=== PATIENT | female | born 1965 | race African-American/Black ===

== ENCOUNTER 2016-03-27 20:40 | Emergency (ER) | payer MEDICARE, MEDICAID ==
[2006-02-04 11:28] VITALS: BP 143/74
[~2016-03-27] VITALS: Ht 167.6 cm; Wt 59.1 kg
[~2016-03-27 20:40] MED LIST: ABILIFY 10MG TA10 MG PO; ACETAMINOPHEN W1 TA6 PO; AMBIEN 5MG TABLE5 MG PO; AMOXICILLIN 50500 MG PO; AMOXICILLIN875 MG PO; ASPIRIN 81M81 MG/TA2 PO; ATARAX 10MG10 MG/TAB PO; ATARAX25 MG PO; ATIVAN2 MG PO; BACTRIM 400 MG-1 TAB PO; BACTRIM DS 8001 TAB PO; BUSPAR10 MG PO; CARAFATE S1 GM/10 ML PO; CEFTIN500 MG PO; CELEXA10 MG PO; CEPHALEXIN500 M1 PO; CITALOPRAM HYDR20 MG PO; CITALOPRAM20 MG PO; CODEINE30 MG PO; COPEGUS200 MG PO; DEPAKOTE 250MG250 MG; DEPAKOTE ER 25250 MG PO; DEPAKOTE ER 50500 MG PO; DEPAKOTE500 MG PO; DIFLUCAN100 MG PO; DIFLUCAN200 MG PO; DILAUDID 2MG TAB2 MG PO; DOXYCYCLINE 10100 MG PO; FLAGYL500 MG PO; FLEXERIL 1010 MG/TAB PO; FLEXERIL10 MG PO; KEFLEX500 MG PO; KENALOG0.0251 TP; KEPPRA XR750 MG PO; LANTUS100 U/ML; LASIX 20MG TABL20 MG PO; LEVEMIR; LEVEMIR SQ; LEVEMIR100 U/ML SQ; LEVETIRACETAM500 MG PO; LEVIMIR; LISINOPRIL; LISINOPRIL10 MG PO; LOPRESSOR 225 MG/TAB PO; LORTAB 5/500 501 TAB PO; LYRICA 150MG C150 MG PO; MAGIC MOUTHWASH1 ML PO; METRONIDAZOLE500 MG PO; NEURONTIN300 MG/CAP PO; NORCO 325 MG-101 TAB PO; NORCO 325 MG-51 TAB PO; NORCO 325 MG-7.1 TAB PO; NOVLOG SQ; NOVOLIN L100 U/ML SC; NOVOLOG 100U100 U/M1 SQ; OMNICEF 300MG300 MG PO; PAIN CREAM; PEGASYS180 MCG/0. MR; PEN-VEE K500 MG PO; PERCOCET 325 MG1 TA2 PO; PERCOCET 325 MG1 TA3 PO; PERCR 7.5 PO; PHENERGAN 25 TA25 MG PO; PHENERGAN W/CO120 ML PO; PHENERGAN25 MG RC; PLAVIX 75MG TAB75 MG PO; PRILOSEC40 MG PO; PRINIVIL2.5 MG PO; PRINIVIL20 MG PO; PRINIVIL40 MG PO; PRISTIQ50 MG; PROTONIX 40MG T40 MG PO; PROZAC 10MG10 MG PO; PROZAC 20MG20 MG PO; RANITIDINE HYD150 MG PO; RISPERDAL 0.5M0.5 MG; RISPERDAL2 MG PO; RISPERDAL3 MG PO; ROXICODONE 55 MG/TAB PO; SEPTRA DS 8001 TAB PO; SEROQUEL200 MG PO; SMZ/TMP; TAMIFLU 75MG75 MG PO; TRAMADOL50 MG PO; TRAZODONE HCL100 MG PO; ULTRAM 50MG TAB50 MG PO; ULTRAM50 MG PO; VENTOLIN0.09 MG IH; VICODIN 5/5001 UDTAB PO; VICTRELIS200 MG PO; ZESTRIL 20MG TA20 MG PO; ZESTRIL40 MG PO; ZITHROMAX 250M250 MG PO; ZOCOR 10MG10 MG PO; ZOFRAN ODT8 MG PO; novolog
[2016-03-27 20:44] VITALS: TEMP 98
[2016-03-27 21:40] LABS: BASO % 0.3 % (0.0-2.0); EOS % 0.4 % (0-4.0); GRAN # 3.2 (1.4-6.5); GRAN % 42.1 % (42.2-75.2); HEMATOCRIT 37.8 % (37.0-47.0); HEMOGLOBIN 12.9 g/dl (12.5-16.0); LYMPH # 3.7 (1.2-3.4); MEAN CELL VOLUME 89 fl (80.0-100.0); MEAN CORPUSCULAR HEMOGLOBIN 31 pg (27.0-31.0); MEAN CORPUSCULAR HGB CONC 34 g/dl (33.0-37.0); MONO # 0.7 (0.1-0.6); MONO % 9.1 % (1.7-9.3); PLATELET COUNT 304 K/mm3 (130-400); RED BLOOD COUNT 4.23 M/mm3 (4.10-5.30); REDCELL DISTRIBUTION WIDTH-CV 13.2 % (11.5-14.5); WHITE BLOOD COUNT 7.7 K/mm3 (4.8-10.8)
[2016-03-27 21:50] LABS: ADJUSTED CALCIUM 9.3 mg/dL (8.4-10.2); ALANINE AMINOTRANSFERASE 62 U/L (9-52); ALBUMIN 4.1 gm/dL (3.5-5.0); ALKALINE PHOSPHATASE 61 U/L (50-136); ANION GAP 12 mmol/L (7-16); BILIRUBIN,TOTAL 0.6 mg/dL (0.0-1.0); BLOOD UREA NITROGEN 15 mg/dL (7-17); CALCIUM 9.4 mg/dL (8.4-10.2); CARBON DIOXIDE 26 mmol/L (22-30); CHLORIDE 101 mmol/L (98-107); CREATININE, serum 0.81 mg/dL (0.52-1.25); GLUCOSE 81 mg/dL (74-106); POTASSIUM 3.6 mmol/L (3.4-5.0); SODIUM 139 mmol/L (137-145); TOTAL PROTEIN 8.3 gm/dL (6.4-8.2)
[2016-03-27 22:20] LABS: ERYTHROCYTE SEDIMENTATION RATE 34 mm/hr (0-30)
[2016-03-27 22:52] LABS: AMPHETAMINE URINE POSITIVE; BARBITURATES URINE NEGATIVE; BENZODIAZEPINES URINE NEGATIVE; BUPRENORPHINE URINE NEGATIVE; METHADONE URINE NEGATIVE; OPIATES URINE NEGATIVE; OXYCODONE URINE POSITIVE; PHENCYCLIDINE URINE NEGATIVE; PROPOXYPHENE URINE NEGATIVE; THC CANNABINOIDS URINE NEGATIVE
[2016-03-27 23:03] VITALS: BP 110/74; PULSE 96
== END 2016-03-27 23:04 | disposition home or self-care (01) ==
LOC: COL.ER 20:40
PROVIDERS: Emergency Medicine
DX: R51 Headache (principal); H57.13 Ocular pain, bilateral; E11.319 Type 2 diabetes mellitus with unspecified diabetic retinopathy without macular edema; F15.10 Other stimulant abuse, uncomplicated; Z79.4 Long term (current) use of insulin

== ENCOUNTER 2016-04-15 23:53 | Emergency (ER) | payer MEDICARE, MEDICAID ==
[2006-02-04 11:28] VITALS: BP 143/74
[~2016-04-15] VITALS: Ht 167.6 cm; Wt 56.8 kg
[2016-04-15 23:59] VITALS: TEMP 97.8
[2016-04-16 00:46] LABS: AMPHETAMINE URINE NEGATIVE; BARBITURATES URINE NEGATIVE; BENZODIAZEPINES URINE NEGATIVE; BUPRENORPHINE URINE NEGATIVE; METHADONE URINE NEGATIVE; OPIATES URINE POSITIVE; OXYCODONE URINE NEGATIVE; PHENCYCLIDINE URINE NEGATIVE; PROPOXYPHENE URINE NEGATIVE; THC CANNABINOIDS URINE NEGATIVE
[2016-04-16 00:59] LABS: BASO % 0.3 % (0.0-2.0); EOS # 0.1 (0.0-0.7); LYMPH # 2.5 (1.2-3.4); LYMPH % 40.3 % (20.0-51.0); MEAN CELL VOLUME 88 fl (80.0-100.0); MEAN CORPUSCULAR HGB CONC 35 g/dl (33.0-37.0); MEAN PLATELET VOLUME 10.4 fl (7.4-10.4); MONO # 0.6 (0.1-0.6); MONO % 9.2 % (1.7-9.3); PLATELET COUNT 241 K/mm3 (130-400); RED BLOOD COUNT 3.78 M/mm3 (4.10-5.30); REDCELL DISTRIBUTION WIDTH-CV 13.1 % (11.5-14.5); WHITE BLOOD COUNT 6.1 K/mm3 (4.8-10.8)
[2016-04-16 01:02] LABS: HEMATOCRIT 33.4 % (37.0-47.0); HEMOGLOBIN 11.7 g/dl (12.5-16.0); MEAN CORPUSCULAR HEMOGLOBIN 31 pg (27.0-31.0)
[2016-04-16 01:13] LABS: ADJUSTED CALCIUM 8.8 mg/dL (8.4-10.2); ALANINE AMINOTRANSFERASE 69 U/L (9-52); ALBUMIN 3.8 gm/dL (3.5-5.0); ALKALINE PHOSPHATASE 69 U/L (50-136); ANION GAP 11 mmol/L (7-16); BILIRUBIN,TOTAL 0.5 mg/dL (0.0-1.0); BLOOD UREA NITROGEN 10 mg/dL (7-17); CALCIUM 8.6 mg/dL (8.4-10.2); CARBON DIOXIDE 26 mmol/L (22-30); CHLORIDE 93 mmol/L (98-107); CREATININE, serum 0.81 mg/dL (0.52-1.25); POTASSIUM 3.2 mmol/L (3.4-5.0); SODIUM 130 mmol/L (137-145); TOTAL PROTEIN 7.6 gm/dL (6.4-8.2)
[2016-04-16 01:17] LABS: ACETAMINOPHEN < 10 ug/mL (10-30); GLUCOSE 517 mg/dL (74-106); SALICYLATE < 1.0 mg/dL
[2016-04-16 14:15] VITALS: BP 152/89; PULSE 101
== END 2016-04-16 14:30 ==
LOC: COL.ER 23:53
PROVIDERS: Nurse Practitioner
DX: F32.9 Major depressive disorder, single episode, unspecified (principal); R45.851 Suicidal ideations; E11.9 Type 2 diabetes mellitus without complications; Z79.4 Long term (current) use of insulin; I10 Essential (primary) hypertension; F43.10 Post-traumatic stress disorder, unspecified; F17.210 Nicotine dependence, cigarettes, uncomplicated; R07.9 Chest pain, unspecified
CPT/HCPCS: J1815; J7030

== ENCOUNTER 2016-05-03 21:46 | Emergency (ER) | payer MEDICARE, MEDICAID ==
[2006-02-04 11:28] VITALS: BP 143/74
[~2016-05-03] VITALS: Ht 167.6 cm; Wt 60.5 kg
[2016-05-03 22:46] VITALS: TEMP 100.8
[2016-05-03 23:08] LABS: BASO % 0.4 % (0.0-2.0); EOS % 0.1 % (0-4.0); GRAN # 7.9 (1.4-6.5); GRAN % 71.6 % (42.2-75.2); HEMATOCRIT 37.3 % (37.0-47.0); HEMOGLOBIN 13.4 g/dl (12.5-16.0); LYMPH # 2.2 (1.2-3.4); LYMPH % 19.6 % (20.0-51.0); MEAN CELL VOLUME 86 fl (80.0-100.0); MEAN CORPUSCULAR HEMOGLOBIN 31 pg (27.0-31.0); MEAN CORPUSCULAR HGB CONC 36 g/dl (33.0-37.0); MONO # 0.9 (0.1-0.6); MONO % 7.9 % (1.7-9.3); PLATELET COUNT 270 K/mm3 (130-400); RED BLOOD COUNT 4.34 M/mm3 (4.10-5.30); REDCELL DISTRIBUTION WIDTH-CV 11.9 % (11.5-14.5); WHITE BLOOD COUNT 11.1 K/mm3 (4.8-10.8)
[2016-05-03 23:19] LABS: ADJUSTED CALCIUM 9.8 mg/dL (8.4-10.2); ALANINE AMINOTRANSFERASE 31 U/L (9-52); ALBUMIN 4.1 gm/dL (3.5-5.0); ALKALINE PHOSPHATASE 72 U/L (50-136); ANION GAP 14 mmol/L (7-16); BILIRUBIN,TOTAL 0.8 mg/dL (0.0-1.0); BLOOD UREA NITROGEN 15 mg/dL (7-17); CALCIUM 9.9 mg/dL (8.4-10.2); CARBON DIOXIDE 26 mmol/L (22-30); CHLORIDE 90 mmol/L (98-107); CREATININE, serum 0.69 mg/dL (0.52-1.25); LIPASE 78 U/L (23-300); POTASSIUM 4.3 mmol/L (3.4-5.0); SODIUM 129 mmol/L (137-145); TOTAL PROTEIN 8.6 gm/dL (6.4-8.2)
[2016-05-03 23:27] LABS: B-TYPE NATRIURETIC PEPTIDE 633 pg/mL (0-125); INFLUENZA B NEGATIVE
[2016-05-03 23:30] LABS: GLUCOSE 562 mg/dL (74-106)
[2016-05-03] MEDS ORDERED: ULTRAM 50MG TAB50 MG PO (23:30)
[2016-05-03 23:33] LABS: TROPONIN-I < 0.012 ng/mL (0.000-0.034)
[2016-05-04 00:42] VITALS: BP 135/75; PULSE 90
== END 2016-05-04 00:45 | disposition home or self-care (01) ==
LOC: COL.ER 21:46
PROVIDERS: Emergency Medicine
DX: R07.9 Chest pain, unspecified (principal); J06.9 Acute upper respiratory infection, unspecified; R00.0 Tachycardia, unspecified; E11.319 Type 2 diabetes mellitus with unspecified diabetic retinopathy without macular edema; Z79.4 Long term (current) use of insulin; F17.210 Nicotine dependence, cigarettes, uncomplicated
CPT/HCPCS: J1170; J7030

== ENCOUNTER 2016-05-07 20:30 | Inpatient (IN) | payer MEDICARE, MEDICAID ==
[~2016-05-07] VITALS: Ht 167.6 cm; Wt 60.0 kg
[2016-05-07] VITALS (9 sets, daily range): O2SAT 96–100
[2016-05-07 20:58] LABS: VENOUS BLOOD GAS BE -0.5 (-4-4)
[2016-05-07 20:59] LABS: VENOUS BLOOD GAS SITE VENIPUNCTURE
[2016-05-07 21:17] LABS: BASO % 0.3 % (0.0-2.0); EOS % 0.3 % (0-4.0); GRAN # 4.7 (1.4-6.5); GRAN % 61.7 % (42.2-75.2); HEMOGLOBIN 12.1 g/dl (12.5-16.0); LYMPH # 2.3 (1.2-3.4); LYMPH % 30.3 % (20.0-51.0); MEAN CELL VOLUME 87 fl (80.0-100.0); MEAN CORPUSCULAR HEMOGLOBIN 31 pg (27.0-31.0); MEAN CORPUSCULAR HGB CONC 36 g/dl (33.0-37.0); MONO # 0.5 (0.1-0.6); MONO % 7.1 % (1.7-9.3); PLATELET COUNT 265 K/mm3 (130-400); RED BLOOD COUNT 3.92 M/mm3 (4.10-5.30); REDCELL DISTRIBUTION WIDTH-CV 11.8 % (11.5-14.5); WHITE BLOOD COUNT 7.6 K/mm3 (4.8-10.8)
[2016-05-07 21:19] LABS: HEMATOCRIT 34.1 % (37.0-47.0)
[2016-05-07 21:25] LABS: PROTHROMBIN TIME 11.1 SECONDS (9.7-12.8)
[2016-05-07 21:27] LABS: INFLUENZA B NEGATIVE
[2016-05-07 21:32] LABS: ADJUSTED CALCIUM 9.6 mg/dL (8.4-10.2); ALANINE AMINOTRANSFERASE 24 U/L (9-52); ALBUMIN 3.7 gm/dL (3.5-5.0); ALKALINE PHOSPHATASE 81 U/L (50-136); ANION GAP 16 mmol/L (7-16); BILIRUBIN,TOTAL 0.6 mg/dL (0.0-1.0); BLOOD UREA NITROGEN 23 mg/dL (7-17); CALCIUM 9.4 mg/dL (8.4-10.2); CARBON DIOXIDE 21 mmol/L (22-30); CREATININE, serum 0.77 mg/dL (0.52-1.25); SODIUM 127 mmol/L (137-145); TOTAL PROTEIN 7.9 gm/dL (6.4-8.2)
[2016-05-07 21:38] LABS: PH 6 (5-8); SQUAMOUS EPITHELIAL 0-2 /hpf; URINE APPEARANCE Clear; URINE BACTERIA None Seen /hpf; URINE BILIRUBIN Negative (NEGATIVE); URINE BLOOD Negative (NEGATIVE); URINE COLOR Straw; URINE GLUCOSE 3+ (NEGATIVE); URINE KETONE Negative (NEGATIVE); URINE RBC 0-2 /hpf; URINE UROBILINOGEN Negative (NEGATIVE); URINE WBC 0-2 /hpf
[2016-05-07 21:41] LABS: LACTIC ACID 3.6 mmol/L (0.4-2.0)
[2016-05-07 21:42] LABS: ACETAMINOPHEN < 10 ug/mL (10-30); B-TYPE NATRIURETIC PEPTIDE 935 pg/mL (0-125); GLUCOSE 723 mg/dL (74-106); SALICYLATE < 1.0 mg/dL
[2016-05-07 21:43] LABS: CHLORIDE 89 mmol/L (98-107); TROPONIN-I < 0.012 ng/mL (0.000-0.034)
[2016-05-07 21:43] LABS: AMPHETAMINE URINE NEGATIVE; BARBITURATES URINE NEGATIVE; BENZODIAZEPINES URINE NEGATIVE; BUPRENORPHINE URINE NEGATIVE; METHADONE URINE NEGATIVE; OPIATES URINE NEGATIVE; OXYCODONE URINE NEGATIVE; PHENCYCLIDINE URINE NEGATIVE; PROPOXYPHENE URINE NEGATIVE; THC CANNABINOIDS URINE NEGATIVE
[2016-05-07] MEDS ORDERED: NOVOLOG 100U100 U/M1 SQ (22:55)
[2016-05-07] MEDS ORDERED: LEVEMIR100 U/ML SQ (22:56)
[2016-05-07] MEDS ORDERED: PERIACTIN 4MG TA4 MG PO (22:57)
[2016-05-07] MEDS ORDERED: CYMBALTA 60MG60 MG PO (22:58)
[2016-05-07] MEDS ORDERED: ULTRAM 50MG TAB50 MG PO (22:58)
[2016-05-07] MEDS ORDERED: INDERAL 20MG20 MG PO (22:59)
[2016-05-07 23:49] LABS: CALCIUM 9.5 mg/dL (8.4-10.2); CREATININE, serum 0.69 mg/dL (0.52-1.25); POTASSIUM 4.2 mmol/L (3.4-5.0)
[2016-05-08] VITALS (843 sets, daily range): BP systolic 107–142; BP diastolic 70–97; PULSE 77–93; TEMP 97–99.5; O2SAT 75–100
[2016-05-08 00:50] LABS: HEMOGLOBIN A1C 13.4 %
[2016-05-08 07:21] LABS: MEAN CELL VOLUME 88 fl (80.0-100.0); MEAN CORPUSCULAR HGB CONC 35 g/dl (33.0-37.0); MEAN PLATELET VOLUME 10.6 fl (7.4-10.4); PLATELET COUNT 237 K/mm3 (130-400); RED BLOOD COUNT 3.91 M/mm3 (4.10-5.30); WHITE BLOOD COUNT 11.6 K/mm3 (4.8-10.8)
[2016-05-08 07:30] LABS: ADD PATHOLOGY DIFF REVIEW NO; HEMATOCRIT 34.4 % (37.0-47.0); MEAN CORPUSCULAR HEMOGLOBIN 31 pg (27.0-31.0)
[2016-05-08 07:34] LABS: CALCIUM 9.2 mg/dL (8.4-10.2); CREATININE, serum 0.63 mg/dL (0.52-1.25); POTASSIUM 4.1 mmol/L (3.4-5.0)
[2016-05-08 08:46] LABS: BAND 36 % (0-10); BASOPHIL 1 % (0-2); METAMYELOCYTE 2 % (0-0); NEUTROPHILS 46 % (42.0-75.2); PLATELET ESTIMATE NORMAL (NORMAL); TOTAL CELLS COUNTED 100
[2016-05-09] VITALS (392 sets, daily range): BP systolic 163–178; BP diastolic 90–100; PULSE 79–87; TEMP 96.1–98.7; O2SAT 81–100
[2016-05-09 06:19] LABS: BASO % 0.3 % (0.0-2.0); EOS # 0.1 (0.0-0.7); GRAN # 4.3 (1.4-6.5); GRAN % 64.1 % (42.2-75.2); LYMPH # 1.8 (1.2-3.4); LYMPH % 26.6 % (20.0-51.0); MEAN CELL VOLUME 90 fl (80.0-100.0); MEAN CORPUSCULAR HGB CONC 34 g/dl (33.0-37.0); MEAN PLATELET VOLUME 10.6 fl (7.4-10.4); MONO # 0.5 (0.1-0.6); MONO % 7.7 % (1.7-9.3); PLATELET COUNT 203 K/mm3 (130-400); RED BLOOD COUNT 3.29 M/mm3 (4.10-5.30); REDCELL DISTRIBUTION WIDTH-CV 12.6 % (11.5-14.5); WHITE BLOOD COUNT 6.7 K/mm3 (4.8-10.8)
[2016-05-09 06:26] LABS: HEMATOCRIT 29.5 % (37.0-47.0); MEAN CORPUSCULAR HEMOGLOBIN 30 pg (27.0-31.0)
[2016-05-09 06:51] LABS: CALCIUM 8.5 mg/dL (8.4-10.2); CREATININE, serum 0.51 mg/dL (0.52-1.25); POTASSIUM 4.1 mmol/L (3.4-5.0)
[2016-05-09] MEDS ORDERED: PRINIVIL5 MG PO (16:12)
== END 2016-05-09 16:30 | disposition home or self-care (01) | DRG 637 ==
LOC: COL.ER 20:30 → ICU 22:39
PROVIDERS: Emergency Medicine; Family Medicine; Nurse Practitioner Family
PROC: 02HV33Z Insertion of Infusion Device into Superior Vena Cava, Percutaneous Approach (ICD-10-PCS; principal; 2016-05-08)
DX: E11.00 Type 2 diabetes mellitus with hyperosmolarity without nonketotic hyperglycemic-hyperosmolar coma (NKHHC) (principal); E43 Unspecified severe protein-calorie malnutrition; I50.22 Chronic systolic (congestive) heart failure; E87.0 Hyperosmolality and hypernatremia; R65.10 Systemic inflammatory response syndrome (SIRS) of non-infectious origin without acute organ dysfunction; E87.1 Hypo-osmolality and hyponatremia; Z68.1 Body mass index [BMI] 19.9 or less, adult; E11.65 Type 2 diabetes mellitus with hyperglycemia; I11.0 Hypertensive heart disease with heart failure; F15.10 Other stimulant abuse, uncomplicated; F14.10 Cocaine abuse, uncomplicated; F31.9 Bipolar disorder, unspecified; Z85.3 Personal history of malignant neoplasm of breast; Z79.4 Long term (current) use of insulin; F17.210 Nicotine dependence, cigarettes, uncomplicated; E86.0 Dehydration
CPT/HCPCS: 99223-AI; 99239; C1751; J0360; J0696; J1170; J1644; J1815; J2405; J7030; J7040

== ENCOUNTER 2016-06-03 04:10 | Inpatient (IN) | payer MEDICARE, MEDICAID ==
[~2016-06-03] VITALS: Ht 167.6 cm; Wt 55.5 kg
[2016-06-03] VITALS (772 sets, daily range): BP systolic 81–105; BP diastolic 51–63; PULSE 80–99; TEMP 97–98.4; O2SAT 84–100
[~2016-06-03 04:10] MED LIST changes: +CYMBALTA 60MG60 MG PO; +INDERAL 20MG20 MG PO; +PERIACTIN 4MG TA4 MG PO; +PRINIVIL5 MG PO
[2016-06-03 05:03] LABS: HEMOGLOBIN 12.7 g/dl (12.5-16.0); MEAN CELL VOLUME 86 fl (80.0-100.0); MEAN CORPUSCULAR HEMOGLOBIN 31 pg (27.0-31.0); MEAN CORPUSCULAR HGB CONC 36 g/dl (33.0-37.0); MEAN PLATELET VOLUME 11.1 fl (7.4-10.4); PLATELET COUNT 242 K/mm3 (130-400); REDCELL DISTRIBUTION WIDTH-CV 11.7 % (11.5-14.5); WHITE BLOOD COUNT 8.7 K/mm3 (4.8-10.8)
[2016-06-03 05:11] LABS: ADD PATHOLOGY DIFF REVIEW NO; HEMATOCRIT 35.2 % (37.0-47.0)
[2016-06-03 05:13] LABS: ADJUSTED CALCIUM 9.5 mg/dL (8.4-10.2); ALANINE AMINOTRANSFERASE 27 U/L (9-52); ALBUMIN 4.1 gm/dL (3.5-5.0); ALKALINE PHOSPHATASE 80 U/L (50-136); ANION GAP 19 mmol/L (7-16); BILIRUBIN,TOTAL 1.1 mg/dL (0.0-1.0); BLOOD UREA NITROGEN 32 mg/dL (7-17); CALCIUM 9.6 mg/dL (8.4-10.2); CARBON DIOXIDE 18 mmol/L (22-30); CREATININE, serum 1.62 mg/dL (0.52-1.25); LIPASE 124 U/L (23-300); POTASSIUM 4.2 mmol/L (3.4-5.0); SODIUM 123 mmol/L (137-145); TOTAL PROTEIN 8.4 gm/dL (6.4-8.2)
[2016-06-03 05:15] LABS: BAND 57 % (0-10); EOSINOPHIL 1 % (0-4); NEUTROPHILS 22 % (42.0-75.2); TOTAL CELLS COUNTED 100
[2016-06-03 05:16] LABS: PLATELET ESTIMATE NORMAL (NORMAL)
[2016-06-03 05:21] LABS: GLUCOSE 703 mg/dL (74-106)
[2016-06-03 05:22] LABS: CHLORIDE 86 mmol/L (98-107)
[2016-06-03 09:24] LABS: PH 5 (5-8); SQUAMOUS EPITHELIAL 0-2 /hpf; URINE APPEARANCE Cloudy; URINE BACTERIA Rare /hpf; URINE BILIRUBIN Negative (NEGATIVE); URINE BLOOD 1+ (NEGATIVE); URINE COLOR Yellow; URINE GLUCOSE 3+ (NEGATIVE); URINE KETONE Negative (NEGATIVE); URINE RBC 0-2 /hpf; URINE UROBILINOGEN Negative (NEGATIVE); URINE WBC 0-2 /hpf
[2016-06-03 09:31] LABS: CALCIUM 8.9 mg/dL (8.4-10.2); CREATININE, serum 1.42 mg/dL (0.52-1.25); POTASSIUM 3.4 mmol/L (3.4-5.0)
[2016-06-03 09:47] LABS: AMPHETAMINE URINE POSITIVE; BARBITURATES URINE NEGATIVE; BENZODIAZEPINES URINE POSITIVE; BUPRENORPHINE URINE NEGATIVE; METHADONE URINE NEGATIVE; OPIATES URINE POSITIVE; OXYCODONE URINE NEGATIVE; PHENCYCLIDINE URINE NEGATIVE; PROPOXYPHENE URINE NEGATIVE; THC CANNABINOIDS URINE NEGATIVE
[2016-06-03 13:29] LABS: CALCIUM 7.9 mg/dL (8.4-10.2); CREATININE, serum 1.25 mg/dL (0.52-1.25); POTASSIUM 4.8 mmol/L (3.4-5.0)
[2016-06-03 17:25] LABS: CALCIUM 7.5 mg/dL (8.4-10.2); CREATININE, serum 1.07 mg/dL (0.52-1.25); POTASSIUM 4.8 mmol/L (3.4-5.0)
[2016-06-03 21:26] LABS: CALCIUM 7.5 mg/dL (8.4-10.2); CREATININE, serum 1.01 mg/dL (0.52-1.25); POTASSIUM 5.5 mmol/L (3.4-5.0)
[2016-06-04] VITALS (538 sets, daily range): BP systolic 102–135; BP diastolic 71–87; PULSE 90–111; TEMP 97.2–98.5; O2SAT 93–100
[2016-06-04 01:15] LABS: CALCIUM 7.7 mg/dL (8.4-10.2); CREATININE, serum 0.97 mg/dL (0.52-1.25); POTASSIUM 4.4 mmol/L (3.4-5.0)
[2016-06-04 05:08] LABS: VENOUS BLOOD GAS BE -5.4 (-4-4); VENOUS BLOOD GAS SAO2 51.2 % (60-80)
[2016-06-04 05:55] LABS: CALCIUM 7.7 mg/dL (8.4-10.2); CREATININE, serum 0.87 mg/dL (0.52-1.25); POTASSIUM 4.3 mmol/L (3.4-5.0)
[2016-06-04 09:49] LABS: CALCIUM 8.3 mg/dL (8.4-10.2); CREATININE, serum 0.88 mg/dL (0.52-1.25); POTASSIUM 3.7 mmol/L (3.4-5.0)
[2016-06-04 13:40] LABS: CALCIUM 8.1 mg/dL (8.4-10.2); CREATININE, serum 0.86 mg/dL (0.52-1.25); POTASSIUM 3.9 mmol/L (3.4-5.0)
[2016-06-04 17:36] LABS: CALCIUM 8.2 mg/dL (8.4-10.2); CREATININE, serum 0.88 mg/dL (0.52-1.25); POTASSIUM 4.2 mmol/L (3.4-5.0)
[2016-06-04 21:54] LABS: CALCIUM 8.3 mg/dL (8.4-10.2); CREATININE, serum 0.84 mg/dL (0.52-1.25); POTASSIUM 4.1 mmol/L (3.4-5.0)
[2016-06-05] VITALS (800 sets, daily range): BP systolic 112–151; BP diastolic 81–102; PULSE 89–97; TEMP 98.1–98.6; O2SAT 92–99
[2016-06-05 06:00] LABS: BASO % 0.1 % (0.0-2.0); EOS # 0.2 (0.0-0.7); EOS % 1.9 % (0-4.0); GRAN # 4.7 (1.4-6.5); GRAN % 56.1 % (42.2-75.2); LYMPH # 2.7 (1.2-3.4); LYMPH % 31.8 % (20.0-51.0); MEAN CELL VOLUME 90 fl (80.0-100.0); MEAN CORPUSCULAR HGB CONC 34 g/dl (33.0-37.0); MONO # 0.8 (0.1-0.6); MONO % 9.9 % (1.7-9.3); PLATELET COUNT 210 K/mm3 (130-400); RED BLOOD COUNT 2.99 M/mm3 (4.10-5.30); REDCELL DISTRIBUTION WIDTH-CV 12.9 % (11.5-14.5); WHITE BLOOD COUNT 8.5 K/mm3 (4.8-10.8)
[2016-06-05 06:16] LABS: HEMATOCRIT 26.8 % (37.0-47.0); MEAN CORPUSCULAR HEMOGLOBIN 31 pg (27.0-31.0)
[2016-06-05 06:17] LABS: HEMOGLOBIN 9.2 g/dl (12.5-16.0)
[2016-06-05 06:23] LABS: CALCIUM 8.4 mg/dL (8.4-10.2); CREATININE, serum 0.8 mg/dL (0.52-1.25); POTASSIUM 3.7 mmol/L (3.4-5.0)
[2016-06-05 10:47] LABS: CALCIUM 8.2 mg/dL (8.4-10.2); CREATININE, serum 0.79 mg/dL (0.52-1.25); POTASSIUM 3.5 mmol/L (3.4-5.0)
[2016-06-05 13:31] LABS: CALCIUM 8.3 mg/dL (8.4-10.2); CREATININE, serum 0.76 mg/dL (0.52-1.25); POTASSIUM 3.5 mmol/L (3.4-5.0)
[2016-06-05 17:20] LABS: CALCIUM 8.3 mg/dL (8.4-10.2); CREATININE, serum 0.77 mg/dL (0.52-1.25); POTASSIUM 3.3 mmol/L (3.4-5.0)
[2016-06-05 23:50] LABS: CALCIUM 8.3 mg/dL (8.4-10.2); CREATININE, serum 0.72 mg/dL (0.52-1.25); POTASSIUM 3.4 mmol/L (3.4-5.0)
[2016-06-06] VITALS (8 sets, daily range): BP systolic 127–153; BP diastolic 81–113; PULSE 85–94; TEMP 97.1–98.7; O2SAT 97
[2016-06-06 06:24] LABS: CALCIUM 8.7 mg/dL (8.4-10.2); CREATININE, serum 0.72 mg/dL (0.52-1.25); POTASSIUM 4.2 mmol/L (3.4-5.0)
[2016-06-06 09:14] LABS: VENOUS BLOOD GAS SITE CENTRAL LINE
[2016-06-06 12:38] LABS: CALCIUM 8.6 mg/dL (8.4-10.2); CREATININE, serum 0.71 mg/dL (0.52-1.25)
[2016-06-06 12:39] LABS: POTASSIUM 3.6 mmol/L (3.4-5.0)
== END 2016-06-06 18:05 | disposition home or self-care (01) | DRG 638 ==
LOC: COL.ER 04:10 → ICU 05:37 → IMCU 06-04 18:45
PROVIDERS: Emergency Medicine; Internal Medicine
DX: E13.10 Other specified diabetes mellitus with ketoacidosis without coma (principal); I50.22 Chronic systolic (congestive) heart failure; N17.9 Acute kidney failure, unspecified; Z79.4 Long term (current) use of insulin; E11.65 Type 2 diabetes mellitus with hyperglycemia; F17.210 Nicotine dependence, cigarettes, uncomplicated; E86.0 Dehydration; F15.10 Other stimulant abuse, uncomplicated; Z91.14 Patient's other noncompliance with medication regimen
CPT/HCPCS: 99233-AI; 99239; A4315; C9113; G0378; J1170; J1644; J1815; J2060; J2405; J3480; J7030

== ENCOUNTER 2016-06-09 13:28 | Emergency (ER) | payer MEDICARE, MEDICAID ==
[2006-02-04 11:28] VITALS: BP 143/74
[2016-06-09 14:18] LABS: VENOUS BLOOD GAS BE -0.1 (-4-4); VENOUS BLOOD GAS SAO2 82.8 % (60-80); VENOUS BLOOD GAS SITE VENIPUNCTURE
[2016-06-09 15:00] LABS: ADJUSTED CALCIUM 9.5 mg/dL (8.4-10.2); ALBUMIN 3.9 gm/dL (3.5-5.0); BILIRUBIN,TOTAL 0.6 mg/dL (0.0-1.0); CALCIUM 9.4 mg/dL (8.4-10.2); CREATININE, serum 0.7 mg/dL (0.52-1.25); POTASSIUM 3.2 mmol/L (3.4-5.0); TOTAL PROTEIN 8.2 gm/dL (6.4-8.2)
[2016-06-09 15:03] LABS: BASO % 0.5 % (0.0-2.0); EOS # 0.1 (0.0-0.7); EOS % 0.8 % (0-4.0); GRAN # 5.3 (1.4-6.5); GRAN % 60.8 % (42.2-75.2); LYMPH # 2.5 (1.2-3.4); LYMPH % 28.5 % (20.0-51.0); MEAN CELL VOLUME 86 fl (80.0-100.0); MEAN CORPUSCULAR HGB CONC 35 g/dl (33.0-37.0); MEAN PLATELET VOLUME 9.9 fl (7.4-10.4); MONO # 0.8 (0.1-0.6); MONO % 8.9 % (1.7-9.3); PLATELET COUNT 379 K/mm3 (130-400); RED BLOOD COUNT 3.81 M/mm3 (4.10-5.30); REDCELL DISTRIBUTION WIDTH-CV 12.8 % (11.5-14.5); WHITE BLOOD COUNT 8.6 K/mm3 (4.8-10.8)
[2016-06-09 15:05] LABS: HEMATOCRIT 32.8 % (37.0-47.0); HEMOGLOBIN 11.5 g/dl (12.5-16.0); MEAN CORPUSCULAR HEMOGLOBIN 30 pg (27.0-31.0)
[2016-06-09 17:45] VITALS: BP 118/74; PULSE 66; TEMP 96.8
== END 2016-06-09 17:47 | disposition home or self-care (01) ==
LOC: COL.ER 13:28
PROVIDERS: Emergency Medicine
DX: E10.649 Type 1 diabetes mellitus with hypoglycemia without coma (principal); Z79.4 Long term (current) use of insulin; T68.XXXA Hypothermia, initial encounter; R41.82 Altered mental status, unspecified
CPT/HCPCS: J7030

== ENCOUNTER 2016-06-26 03:14 | Emergency (ER) | payer MEDICARE, MEDICAID ==
[2006-02-04 11:28] VITALS: BP 143/74
[~2016-06-26] VITALS: Ht 165.1 cm; Wt 58.2 kg
[2016-06-26 03:20] VITALS: TEMP 98.1
[2016-06-26 04:05] LABS: VENOUS BLOOD GAS SAO2 78.1 % (60-80)
[2016-06-26 04:07] LABS: VENOUS BLOOD GAS SITE VENIPUNCTURE
[2016-06-26 04:11] LABS: BASO % 0.4 % (0.0-2.0); EOS % 0.8 % (0-4.0); GRAN # 2.4 (1.4-6.5); GRAN % 50.8 % (42.2-75.2); LYMPH # 1.7 (1.2-3.4); LYMPH % 35.3 % (20.0-51.0); MEAN CELL VOLUME 90 fl (80.0-100.0); MEAN CORPUSCULAR HGB CONC 35 g/dl (33.0-37.0); MEAN PLATELET VOLUME 10.6 fl (7.4-10.4); MONO # 0.6 (0.1-0.6); MONO % 12.5 % (1.7-9.3); PLATELET COUNT 266 K/mm3 (130-400); RED BLOOD COUNT 3.46 M/mm3 (4.10-5.30); REDCELL DISTRIBUTION WIDTH-CV 13.9 % (11.5-14.5); WHITE BLOOD COUNT 4.7 K/mm3 (4.8-10.8)
[2016-06-26 04:16] LABS: HEMOGLOBIN 10.7 g/dl (12.5-16.0); MEAN CORPUSCULAR HEMOGLOBIN 31 pg (27.0-31.0)
[2016-06-26 04:27] LABS: ADJUSTED CALCIUM 9.2 mg/dL (8.4-10.2); ALANINE AMINOTRANSFERASE 42 U/L (9-52); ALBUMIN 3.7 gm/dL (3.5-5.0); ALKALINE PHOSPHATASE 89 U/L (50-136); ANION GAP 12 mmol/L (7-16); BILIRUBIN,TOTAL 0.5 mg/dL (0.0-1.0); BLOOD UREA NITROGEN 17 mg/dL (7-17); CARBON DIOXIDE 25 mmol/L (22-30); CHLORIDE 94 mmol/L (98-107); CREATININE, serum 0.66 mg/dL (0.52-1.25); POTASSIUM 3.6 mmol/L (3.4-5.0); SODIUM 131 mmol/L (137-145); TOTAL PROTEIN 7.3 gm/dL (6.4-8.2)
[2016-06-26 04:29] LABS: GLUCOSE 542 mg/dL (74-106)
[2016-06-26 05:42] LABS: TROPONIN-I < 0.012 ng/mL (0.000-0.034)
[2016-06-26] MEDS ORDERED: LEVEMIR SQ (06:49)
[2016-06-26 07:01] VITALS: BP 145/90; PULSE 98
== END 2016-06-26 07:01 | disposition home or self-care (01) ==
LOC: COL.ER 03:14
PROVIDERS: Emergency Medicine
DX: E10.65 Type 1 diabetes mellitus with hyperglycemia (principal); T38.3X6A Underdosing of insulin and oral hypoglycemic [antidiabetic] drugs, initial encounter; Z91.138 Patient's unintentional underdosing of medication regimen for other reason; R07.9 Chest pain, unspecified; Z79.4 Long term (current) use of insulin; J44.9 Chronic obstructive pulmonary disease, unspecified; F17.210 Nicotine dependence, cigarettes, uncomplicated; R00.0 Tachycardia, unspecified
CPT/HCPCS: J1815; J7030

== ENCOUNTER 2016-07-02 00:44 | Emergency (ER) | payer MEDICARE, MEDICAID ==
[2006-02-04 11:28] VITALS: BP 143/74
[~2016-07-02] VITALS: Ht 165.1 cm; Wt 59.1 kg
[2016-07-02 00:48] VITALS: TEMP 97.7
[2016-07-02 02:04] LABS: BASO # 0.1 (0.0-0.2); BASO % 0.6 % (0.0-2.0); EOS # 0.1 (0.0-0.7); EOS % 0.9 % (0-4.0); GRAN # 5.1 (1.4-6.5); GRAN % 56.6 % (42.2-75.2); HEMATOCRIT 32.1 % (37.0-47.0); LYMPH # 2.5 (1.2-3.4); LYMPH % 28.1 % (20.0-51.0); MEAN CELL VOLUME 90 fl (80.0-100.0); MEAN CORPUSCULAR HEMOGLOBIN 31 pg (27.0-31.0); MEAN CORPUSCULAR HGB CONC 34 g/dl (33.0-37.0); MEAN PLATELET VOLUME 10.3 fl (7.4-10.4); MONO # 1.2 (0.1-0.6); MONO % 13.5 % (1.7-9.3); PLATELET COUNT 336 K/mm3 (130-400); RED BLOOD COUNT 3.57 M/mm3 (4.10-5.30); REDCELL DISTRIBUTION WIDTH-CV 14.5 % (11.5-14.5)
[2016-07-02 02:13] LABS: CALCIUM 9.4 mg/dL (8.4-10.2); CREATININE, serum 1.6 mg/dL (0.52-1.25); POTASSIUM 4.1 mmol/L (3.4-5.0)
[2016-07-02] MEDS ORDERED: TYLENOL W/COD1 UDTAB PO (02:33)
[2016-07-02 02:57] VITALS: BP 115/72; PULSE 93
== END 2016-07-02 03:00 | disposition home or self-care (01) ==
LOC: COL.ER 00:44
PROVIDERS: Emergency Medicine
DX: M79.672 Pain in left foot (principal); E11.9 Type 2 diabetes mellitus without complications; E86.0 Dehydration; I10 Essential (primary) hypertension; F17.210 Nicotine dependence, cigarettes, uncomplicated; Z79.4 Long term (current) use of insulin

== ENCOUNTER 2016-08-13 22:35 | Emergency (ER) | payer MEDICARE, MEDICAID ==
[2006-02-04 11:28] VITALS: BP 143/74
[~2016-08-13] VITALS: Ht 165.1 cm; Wt 55.5 kg
[~2016-08-13 22:35] MED LIST changes: +TYLENOL W/COD1 UDTAB PO
[2016-08-13 22:37] VITALS: BP 121/79; TEMP 97.9
[2016-08-13] MEDS ORDERED: AMOXICILLIN 50500 MG PO (23:02)
[2016-08-13 23:22] VITALS: PULSE 114
== END 2016-08-13 23:24 | disposition home or self-care (01) ==
LOC: COL.ER 22:35
DX: K05.219 Aggressive periodontitis, localized, unspecified severity (principal); E13.10 Other specified diabetes mellitus with ketoacidosis without coma; E11.40 Type 2 diabetes mellitus with diabetic neuropathy, unspecified; I11.0 Hypertensive heart disease with heart failure; I50.9 Heart failure, unspecified; I25.2 Old myocardial infarction; F31.9 Bipolar disorder, unspecified; F43.10 Post-traumatic stress disorder, unspecified; D25.9 Leiomyoma of uterus, unspecified; A53.9 Syphilis, unspecified; F17.210 Nicotine dependence, cigarettes, uncomplicated; F14.99 Cocaine use, unspecified with unspecified cocaine-induced disorder; Z79.4 Long term (current) use of insulin; Z85.3 Personal history of malignant neoplasm of breast; Z90.12 Acquired absence of left breast and nipple; Z90.49 Acquired absence of other specified parts of digestive tract; Z98.51 Tubal ligation status; Z98.890 Other specified postprocedural states

== ENCOUNTER 2016-09-07 18:35 | Emergency (ER) | payer MEDICARE, MEDICAID ==
[2006-02-04 11:28] VITALS: BP 143/74
[~2016-09-07] VITALS: Ht 165.1 cm; Wt 58.6 kg
[2016-09-07 18:40] VITALS: BP 109/67; TEMP 98
[2016-09-07] MEDS ORDERED: ZESTRIL 20MG TA20 MG PO (18:46)
[2016-09-07 19:51] LABS: BASO % 0.4 % (0.0-2.0); EOS % 0.4 % (0-4.0); HEMATOCRIT 34.4 % (37.0-47.0); HEMOGLOBIN 12.1 g/dl (12.5-16.0); LYMPH # 1.5 (1.2-3.4); LYMPH % 30.3 % (20.0-51.0); MEAN CELL VOLUME 86 fl (80.0-100.0); MEAN CORPUSCULAR HEMOGLOBIN 30 pg (27.0-31.0); MEAN CORPUSCULAR HGB CONC 35 g/dl (33.0-37.0); MEAN PLATELET VOLUME 10.6 fl (7.4-10.4); MONO # 0.4 (0.1-0.6); MONO % 7.7 % (1.7-9.3); PLATELET COUNT 251 K/mm3 (130-400); RED BLOOD COUNT 3.99 M/mm3 (4.10-5.30); REDCELL DISTRIBUTION WIDTH-CV 12.1 % (11.5-14.5); WHITE BLOOD COUNT 4.9 K/mm3 (4.8-10.8)
[2016-09-07 20:02] LABS: ADJUSTED CALCIUM 9.1 mg/dL (8.4-10.2); ALANINE AMINOTRANSFERASE 30 U/L (9-52); ALBUMIN 3.6 gm/dL (3.5-5.0); ALKALINE PHOSPHATASE 65 U/L (50-136); ANION GAP 19 mmol/L (7-16); BILIRUBIN,TOTAL 0.6 mg/dL (0.0-1.0); BLOOD UREA NITROGEN 12 mg/dL (7-17); CALCIUM 8.8 mg/dL (8.4-10.2); CARBON DIOXIDE 21 mmol/L (22-30); CREATININE, serum 0.73 mg/dL (0.52-1.25); LIPASE 240 U/L (23-300); POTASSIUM 3.7 mmol/L (3.4-5.0); SODIUM 125 mmol/L (137-145); TOTAL PROTEIN 7.4 gm/dL (6.4-8.2)
[2016-09-07 20:04] LABS: CHLORIDE 84 mmol/L (98-107)
[2016-09-07 20:11] LABS: GLUCOSE 738 mg/dL (74-106)
[2016-09-07 22:56] VITALS: PULSE 93
== END 2016-09-07 23:02 | disposition home or self-care (01) ==
LOC: COL.ER 18:35
PROVIDERS: Emergency Medicine
DX: E11.65 Type 2 diabetes mellitus with hyperglycemia (principal); Z79.4 Long term (current) use of insulin; R11.2 Nausea with vomiting, unspecified; R63.0 Anorexia
CPT/HCPCS: J1170; J1815; J2550; J7030

== ENCOUNTER 2016-10-02 22:22 | Emergency (ER) | payer MEDICARE, MEDICAID ==
[2006-02-04 11:28] VITALS: BP 143/74
[~2016-10-02] VITALS: Ht 167.6 cm; Wt 59.1 kg
[2016-10-02 22:24] VITALS: BP 128/84; TEMP 98.6
[2016-10-02 23:42] VITALS: PULSE 99
== END 2016-10-02 23:43 | disposition home or self-care (01) ==
LOC: COL.ER 22:22
DX: K04.7 Periapical abscess without sinus (principal); E11.9 Type 2 diabetes mellitus without complications; F17.210 Nicotine dependence, cigarettes, uncomplicated

== ENCOUNTER 2016-11-22 17:18 | Emergency (ER) | payer MEDICARE, MEDICAID ==
[2006-02-04 11:28] VITALS: BP 143/74
[~2016-11-22] VITALS: Ht 165.1 cm; Wt 58.6 kg
[2016-11-22 17:20] VITALS: PULSE 90; TEMP 97.8
[2016-11-22 18:06] VITALS: BP 127/82
[2016-11-22] MEDS ORDERED: FLEXERIL 1010 MG/TAB PO (18:35)
[2016-11-22] MEDS ORDERED: NORCO 325 MG-51 TAB PO (18:35)
== END 2016-11-22 18:53 | disposition home or self-care (01) ==
LOC: COL.ER 17:18
DX: M54.32 Sciatica, left side (principal); E11.9 Type 2 diabetes mellitus without complications; Z79.4 Long term (current) use of insulin
CPT/HCPCS: J2360

== ENCOUNTER 2017-01-11 09:35 | Emergency (ER) | payer MEDICARE, MEDICAID ==
[2006-02-04 11:28] VITALS: BP 143/74
[~2017-01-11] VITALS: Ht 165.1 cm; Wt 54.3 kg
[2017-01-11 09:39] VITALS: BP 127/81; TEMP 97.1
[2017-01-11 10:59] LABS: COLLECTION METHOD CLEAN CATCH
[2017-01-11 11:15] LABS: MUCOUS Present /lpf; PH 6 (5-8); SQUAMOUS EPITHELIAL 0-2 /hpf; URINE APPEARANCE Clear; URINE BACTERIA None Seen /hpf; URINE BILIRUBIN Negative (NEGATIVE); URINE BLOOD Negative (NEGATIVE); URINE COLOR Straw; URINE GLUCOSE 3+ (NEGATIVE); URINE KETONE Negative (NEGATIVE); URINE LEUKOCYTE ESTERASE Negative (NEGATIVE); URINE PROTEIN(semi-quant) Negative (NEGATIVE); URINE RBC 0-2 /hpf; URINE UROBILINOGEN Negative (NEGATIVE); URINE WBC 0-2 /hpf
[2017-01-11] MEDS ORDERED: FLEXERIL 1010 MG/TAB PO (11:47)
[2017-01-11 11:59] VITALS: PULSE 99
== END 2017-01-11 11:58 | disposition home or self-care (01) ==
LOC: COL.ER 09:35
PROVIDERS: Physician Assistant
DX: M54.31 Sciatica, right side (principal); E11.65 Type 2 diabetes mellitus with hyperglycemia; I50.9 Heart failure, unspecified; F43.10 Post-traumatic stress disorder, unspecified; F31.9 Bipolar disorder, unspecified; Z90.49 Acquired absence of other specified parts of digestive tract; Z79.4 Long term (current) use of insulin; Z98.51 Tubal ligation status; Z98.890 Other specified postprocedural states; Z90.12 Acquired absence of left breast and nipple
CPT/HCPCS: J2360

== ENCOUNTER 2017-03-07 00:28 | Emergency (ER) | payer MEDICARE, MEDICAID ==
[2006-02-04 11:28] VITALS: BP 143/74
[~2017-03-07] VITALS: Ht 165.1 cm; Wt 55.5 kg
[2017-03-07 00:33] VITALS: TEMP 98.5
[2017-03-07] MEDS ORDERED: BACTROBAN15 GM TOP (00:49)
[2017-03-07 01:26] VITALS: BP 148/96; PULSE 102
== END 2017-03-07 01:25 | disposition home or self-care (01) ==
LOC: COL.ER 00:28
DX: S90.511A Abrasion, right ankle, initial encounter (principal); E11.65 Type 2 diabetes mellitus with hyperglycemia; I10 Essential (primary) hypertension; F17.210 Nicotine dependence, cigarettes, uncomplicated; Z79.4 Long term (current) use of insulin; X58.XXXA Exposure to other specified factors, initial encounter

== ENCOUNTER 2017-03-24 22:40 | Emergency (ER) | payer MEDICARE, MEDICAID ==
[2006-02-04 11:28] VITALS: BP 143/74
[~2017-03-24] VITALS: Ht 167.6 cm; Wt 57.7 kg
[~2017-03-24 22:40] MED LIST changes: +BACTROBAN15 GM TOP
[2017-03-24 22:43] VITALS: BP 142/81; TEMP 97.8
[2017-03-24 23:45] LABS: COLLECTION METHOD CLEAN CATCH
[2017-03-24 23:47] LABS: BASO % 0.6 % (0.0-2.0); EOS # 0.1 (0.0-0.7); EOS % 1.1 % (0-4.0); GRAN % 43.9 % (42.2-75.2); LYMPH % 43.4 % (20.0-51.0); MEAN CELL VOLUME 91 fl (80.0-100.0); MEAN CORPUSCULAR HGB CONC 34 g/dl (33.0-37.0); MEAN PLATELET VOLUME 9.9 fl (7.4-10.4); MONO # 0.5 (0.1-0.6); MONO % 10.8 % (1.7-9.3); PLATELET COUNT 282 K/mm3 (130-400); RED BLOOD COUNT 3.54 M/mm3 (4.10-5.30); REDCELL DISTRIBUTION WIDTH-CV 12.9 % (11.5-14.5)
[2017-03-24 23:50] LABS: HEMATOCRIT 32.1 % (37.0-47.0); HEMOGLOBIN 10.8 g/dl (12.5-16.0); MEAN CORPUSCULAR HEMOGLOBIN 31 pg (27.0-31.0)
[2017-03-24 23:56] LABS: ALANINE AMINOTRANSFERASE 37 U/L (9-52); ALBUMIN 3.9 gm/dL (3.5-5.0); ALKALINE PHOSPHATASE 60 U/L (50-136); ANION GAP 11 mmol/L (7-16); AST,SGOT 40 U/L (15-37); BILIRUBIN,TOTAL 0.2 mg/dL (0.0-1.0); BLOOD UREA NITROGEN 10 mg/dL (7-17); CALCIUM 9.1 mg/dL (8.4-10.2); CARBON DIOXIDE 24 mmol/L (22-30); CHLORIDE 101 mmol/L (98-107); CREATININE, serum 0.82 mg/dL (0.52-1.25); GLUCOSE 341 mg/dL (74-106); POTASSIUM 4.4 mmol/L (3.4-5.0); SODIUM 136 mmol/L (137-145); TOTAL PROTEIN 7.4 gm/dL (6.4-8.2)
[2017-03-24 23:57] LABS: PH 6 (5-8); SQUAMOUS EPITHELIAL 0-2 /hpf; URINE APPEARANCE Clear; URINE BACTERIA Rare /hpf; URINE BILIRUBIN Negative (NEGATIVE); URINE BLOOD Negative (NEGATIVE); URINE COLOR Straw; URINE GLUCOSE 3+ (NEGATIVE); URINE KETONE Negative (NEGATIVE); URINE LEUKOCYTE ESTERASE Negative (NEGATIVE); URINE NITRATE Negative (NEGATIVE); URINE PROTEIN(semi-quant) Negative (NEGATIVE); URINE RBC 0-2 /hpf; URINE UROBILINOGEN Negative (NEGATIVE)
[2017-03-24 23:57] LABS: INR 0.9 (0.8-3.0); PROTHROMBIN TIME 10.2 SECONDS (9.7-12.8)
[2017-03-24 23:59] LABS: PARTIAL THROMBOPLASTIN TIME 26.2 SECONDS (26.0-37.0)
[2017-03-25 00:04] LABS: TRICYCLIC ANTIDEPRESS URINE NEGATIVE
[2017-03-25 00:23] LABS: TROPONIN-I < 0.012 ng/mL (0.000-0.034)
[2017-03-25] MEDS ORDERED: PREDNISONE20 MG PO (00:32)
[2017-03-25 00:35] VITALS: PULSE 106
== END 2017-03-25 00:38 | disposition home or self-care (01) ==
LOC: COL.ER 22:40
PROVIDERS: Family Medicine
DX: M19.042 Primary osteoarthritis, left hand (principal); M19.041 Primary osteoarthritis, right hand; M19.072 Primary osteoarthritis, left ankle and foot; M19.071 Primary osteoarthritis, right ankle and foot; F15.10 Other stimulant abuse, uncomplicated; E11.65 Type 2 diabetes mellitus with hyperglycemia; I10 Essential (primary) hypertension; Z79.4 Long term (current) use of insulin
CPT/HCPCS: J1815

== ENCOUNTER 2017-04-18 23:06 | Emergency (ER) | payer MEDICARE, MEDICAID ==
[2006-02-04 11:28] VITALS: BP 143/74
[~2017-04-18] VITALS: Ht 167.6 cm; Wt 58.6 kg
[~2017-04-18 23:06] MED LIST changes: +PREDNISONE20 MG PO
[2017-04-18 23:11] VITALS: TEMP 97.8
[2017-04-19 00:37] LABS: COLLECTION METHOD CLEAN CATCH
[2017-04-19 01:01] LABS: BASO % 0.2 % (0.0-2.0); EOS # 0.1 (0.0-0.7); GRAN # 5.5 (1.4-6.5); GRAN % 62.1 % (42.2-75.2); LYMPH # 2.4 (1.2-3.4); LYMPH % 26.7 % (20.0-51.0); MEAN CELL VOLUME 88 fl (80.0-100.0); MEAN CORPUSCULAR HGB CONC 35 g/dl (33.0-37.0); MEAN PLATELET VOLUME 10.8 fl (7.4-10.4); MONO # 0.9 (0.1-0.6); MONO % 9.8 % (1.7-9.3); PLATELET COUNT 244 K/mm3 (130-400); RED BLOOD COUNT 3.84 M/mm3 (4.10-5.30); REDCELL DISTRIBUTION WIDTH-CV 12.5 % (11.5-14.5)
[2017-04-19 01:02] LABS: HEMATOCRIT 33.6 % (37.0-47.0); HEMOGLOBIN 11.8 g/dl (12.5-16.0); MEAN CORPUSCULAR HEMOGLOBIN 31 pg (27.0-31.0)
[2017-04-19 01:03] LABS: MUCOUS Present /lpf; PH 6 (5-8); SQUAMOUS EPITHELIAL 0-2 /hpf; URINE APPEARANCE Hazy; URINE BACTERIA None Seen /hpf; URINE BILIRUBIN Negative (NEGATIVE); URINE BLOOD Negative (NEGATIVE); URINE COLOR Yellow; URINE GLUCOSE 3+ (NEGATIVE); URINE KETONE Negative (NEGATIVE); URINE LEUKOCYTE ESTERASE Negative (NEGATIVE); URINE NITRATE Negative (NEGATIVE); URINE PROTEIN(semi-quant) Negative (NEGATIVE); URINE RBC 0-2 /hpf; URINE UROBILINOGEN Negative (NEGATIVE)
[2017-04-19 01:08] LABS: BILIRUBIN,TOTAL 0.5 mg/dL (0.0-1.0); C-REACTIVE PROTEIN 1.2 mg/dL (0.0-0.9); CALCIUM 9.6 mg/dL (8.4-10.2); CREATININE, serum 0.93 mg/dL (0.52-1.25); MAGNESIUM 1.4 mg/dL (1.6-2.3); POTASSIUM 3.6 mmol/L (3.4-5.0); TOTAL PROTEIN 7.7 gm/dL (6.4-8.2)
[2017-04-19] MEDS ORDERED: PHENERGAN 25 TA25 MG PO (02:20)
[2017-04-19] MEDS ORDERED: CARAFATE 1GM1 G PO (02:20)
[2017-04-19] MEDS ORDERED: PROTONIX 40MG T40 MG PO (02:21)
[2017-04-19 02:24] VITALS: BP 104/64; PULSE 90
== END 2017-04-19 02:32 | disposition home or self-care (01) ==
LOC: COL.ER 23:06
PROVIDERS: Emergency Medicine
DX: R11.2 Nausea with vomiting, unspecified (principal); R19.7 Diarrhea, unspecified; E11.9 Type 2 diabetes mellitus without complications; Z87.19 Personal history of other diseases of the digestive system; Z98.51 Tubal ligation status; Z90.49 Acquired absence of other specified parts of digestive tract; Z79.4 Long term (current) use of insulin
CPT/HCPCS: C9113; J2405; J2550; J7030

== ENCOUNTER 2017-05-19 14:05 | Emergency (ER) | payer MEDICARE, MEDICAID ==
[2006-02-04 11:28] VITALS: BP 143/74
[~2017-05-19] VITALS: Ht 165.1 cm; Wt 55.0 kg
[~2017-05-19 14:05] MED LIST changes: +CARAFATE 1GM1 G PO
[2017-05-19 14:08] VITALS: TEMP 96
[2017-05-19 14:43] LABS: BASO # 0.1 (0.0-0.2); BASO % 0.7 % (0.0-2.0); EOS # 0.1 (0.0-0.7); EOS % 0.9 % (0-4.0); GRAN # 4.1 (1.4-6.5); GRAN % 54.5 % (42.2-75.2); HEMOGLOBIN 12.8 g/dl (12.5-16.0); LYMPH # 2.6 (1.2-3.4); LYMPH % 34.4 % (20.0-51.0); MEAN CELL VOLUME 87 fl (80.0-100.0); MEAN CORPUSCULAR HEMOGLOBIN 31 pg (27.0-31.0); MEAN CORPUSCULAR HGB CONC 36 g/dl (33.0-37.0); MEAN PLATELET VOLUME 9.9 fl (7.4-10.4); MONO # 0.7 (0.1-0.6); MONO % 9.4 % (1.7-9.3); PLATELET COUNT 247 K/mm3 (130-400); RED BLOOD COUNT 4.13 M/mm3 (4.10-5.30); REDCELL DISTRIBUTION WIDTH-CV 12.7 % (11.5-14.5)
[2017-05-19 14:44] LABS: HEMATOCRIT 35.9 % (37.0-47.0)
[2017-05-19 14:56] LABS: ALANINE AMINOTRANSFERASE 44 U/L (9-52); ALBUMIN 4.4 gm/dL (3.5-5.0); ALKALINE PHOSPHATASE 59 U/L (50-136); ANION GAP 12 mmol/L (7-16); AST,SGOT 48 U/L (15-37); BILIRUBIN,TOTAL 0.5 mg/dL (0.0-1.0); BLOOD UREA NITROGEN 16 mg/dL (7-17); CALCIUM 9.3 mg/dL (8.4-10.2); CARBON DIOXIDE 25 mmol/L (22-30); CHLORIDE 103 mmol/L (98-107); CREATININE, serum 0.88 mg/dL (0.52-1.25); GLUCOSE 119 mg/dL (74-106); LIPASE 58 U/L (23-300); POTASSIUM 3.2 mmol/L (3.4-5.0); SODIUM 140 mmol/L (137-145); TOTAL PROTEIN 8.4 gm/dL (6.4-8.2)
[2017-05-19 14:58] LABS: C-REACTIVE PROTEIN < 0.5 mg/dL (0.0-0.9)
[2017-05-19 15:48] VITALS: BP 129/86; PULSE 87
== END 2017-05-19 15:54 | disposition home or self-care (01) ==
LOC: COL.ER 14:05
PROVIDERS: Emergency Medicine
DX: E11.649 Type 2 diabetes mellitus with hypoglycemia without coma (principal); T38.3X5A Adverse effect of insulin and oral hypoglycemic [antidiabetic] drugs, initial encounter; I50.9 Heart failure, unspecified; F17.210 Nicotine dependence, cigarettes, uncomplicated; K86.1 Other chronic pancreatitis; Z85.3 Personal history of malignant neoplasm of breast; Z90.49 Acquired absence of other specified parts of digestive tract; Z79.4 Long term (current) use of insulin

== ENCOUNTER 2017-05-21 17:19 | Emergency (ER) | payer MEDICARE, MEDICAID ==
[2017-05-21 17:19] VITALS: BP 197/116; TEMP 98.1
[2017-05-21 18:17] LABS: BASO % 0.4 % (0.0-2.0); EOS # 0.1 (0.0-0.7); EOS % 1.1 % (0-4.0); GRAN # 2.1 (1.4-6.5); GRAN % 44.1 % (42.2-75.2); HEMOGLOBIN 12.2 g/dl (12.5-16.0); LYMPH # 2.1 (1.2-3.4); LYMPH % 44.3 % (20.0-51.0); MEAN CELL VOLUME 89 fl (80.0-100.0); MEAN CORPUSCULAR HEMOGLOBIN 31 pg (27.0-31.0); MEAN CORPUSCULAR HGB CONC 35 g/dl (33.0-37.0); MEAN PLATELET VOLUME 9.9 fl (7.4-10.4); MONO # 0.5 (0.1-0.6); MONO % 10.1 % (1.7-9.3); PLATELET COUNT 272 K/mm3 (130-400); RED BLOOD COUNT 3.93 M/mm3 (4.10-5.30)
[2017-05-21 18:23] LABS: HEMATOCRIT 34.8 % (37.0-47.0)
[2017-05-21 18:29] LABS: ACETAMINOPHEN < 10 ug/mL (10-30); ALANINE AMINOTRANSFERASE 41 U/L (9-52); ALBUMIN 4.1 gm/dL (3.5-5.0); ALCOHOL(ethanol),MEDICAL < 10 mg/dL; ALKALINE PHOSPHATASE 60 U/L (50-136); ANION GAP 10 mmol/L (7-16); AST,SGOT 34 U/L (15-37); BILIRUBIN,TOTAL 0.2 mg/dL (0.0-1.0); BLOOD UREA NITROGEN 7 mg/dL (7-17); CALCIUM 9.3 mg/dL (8.4-10.2); CARBON DIOXIDE 22 mmol/L (22-30); CHLORIDE 107 mmol/L (98-107); CREATININE, serum 0.81 mg/dL (0.52-1.25); GLUCOSE 95 mg/dL (74-106); POTASSIUM 3.9 mmol/L (3.4-5.0); SALICYLATE < 1.0 mg/dL; SODIUM 139 mmol/L (137-145); TOTAL PROTEIN 8.1 gm/dL (6.4-8.2)
[2017-05-21 18:40] LABS: VALPROIC ACID (DEPAKENE) < 10.0 ug/mL (50.0-100.0)
[2017-05-21] MEDS ORDERED: NORVASC 5MG5 MG/TAB PO (18:44)
[2017-05-21 18:50] LABS: COLLECTION METHOD CLEAN CATCH
[2017-05-21 19:12] LABS: TRICYCLIC ANTIDEPRESS URINE NEGATIVE
[2017-05-21 19:13] LABS: PH 5 (5-8); SQUAMOUS EPITHELIAL 0-2 /hpf; URINE APPEARANCE Clear; URINE BACTERIA None Seen /hpf; URINE BILIRUBIN Negative (NEGATIVE); URINE BLOOD Negative (NEGATIVE); URINE COLOR Yellow; URINE GLUCOSE 3+ (NEGATIVE); URINE KETONE Negative (NEGATIVE); URINE LEUKOCYTE ESTERASE Trace (NEGATIVE); URINE NITRATE Negative (NEGATIVE); URINE PROTEIN(semi-quant) Negative (NEGATIVE); URINE UROBILINOGEN Negative (NEGATIVE)
[2017-05-21 19:40] VITALS: PULSE 103
== END 2017-05-21 19:40 ==
LOC: COL.ER 17:19
PROVIDERS: Nurse Practitioner
DX: R56.9 Unspecified convulsions (principal); F31.9 Bipolar disorder, unspecified; F43.10 Post-traumatic stress disorder, unspecified; E11.9 Type 2 diabetes mellitus without complications; F17.210 Nicotine dependence, cigarettes, uncomplicated; F12.90 Cannabis use, unspecified, uncomplicated; Z79.4 Long term (current) use of insulin; Z90.49 Acquired absence of other specified parts of digestive tract; Z98.51 Tubal ligation status

== ENCOUNTER 2017-06-04 23:44 | Emergency (ER) | payer MEDICARE, MEDICAID ==
[2006-02-04 11:28] VITALS: BP 143/74
[~2017-06-04] VITALS: Ht 165.1 cm; Wt 53.2 kg
[~2017-06-04 23:44] MED LIST changes: +NORVASC 5MG5 MG/TAB PO
[2017-06-04 23:47] VITALS: BP 118/66; TEMP 97.8
[2017-06-05 00:43] LABS: BASO % 0.6 % (0.0-2.0); EOS # 0.1 (0.0-0.7); EOS % 1.4 % (0-4.0); GRAN # 2.2 (1.4-6.5); GRAN % 44.5 % (42.2-75.2); LYMPH # 2.1 (1.2-3.4); LYMPH % 41.7 % (20.0-51.0); MEAN CELL VOLUME 90 fl (80.0-100.0); MEAN CORPUSCULAR HGB CONC 34 g/dl (33.0-37.0); MEAN PLATELET VOLUME 9.5 fl (7.4-10.4); MONO # 0.6 (0.1-0.6); MONO % 11.6 % (1.7-9.3); PLATELET COUNT 261 K/mm3 (130-400); RED BLOOD COUNT 3.22 M/mm3 (4.10-5.30); REDCELL DISTRIBUTION WIDTH-CV 13.8 % (11.5-14.5)
[2017-06-05 00:44] LABS: HEMATOCRIT 29.1 % (37.0-47.0); HEMOGLOBIN 9.9 g/dl (12.5-16.0); MEAN CORPUSCULAR HEMOGLOBIN 31 pg (27.0-31.0)
[2017-06-05 00:55] LABS: ANION GAP 11 mmol/L (7-16); BLOOD UREA NITROGEN 7 mg/dL (7-17); C-REACTIVE PROTEIN < 0.5 mg/dL (0.0-0.9); CALCIUM 8.7 mg/dL (8.4-10.2); CARBON DIOXIDE 26 mmol/L (22-30); CHLORIDE 102 mmol/L (98-107); CREATININE, serum 0.79 mg/dL (0.52-1.25); GLUCOSE 195 mg/dL (74-106); POTASSIUM 3.7 mmol/L (3.4-5.0); SODIUM 139 mmol/L (137-145)
[2017-06-05 01:10] VITALS: PULSE 92
== END 2017-06-05 01:17 | disposition home or self-care (01) ==
LOC: COL.ER 23:44
PROVIDERS: Physician Assistant
DX: M79.89 Other specified soft tissue disorders (principal); J44.9 Chronic obstructive pulmonary disease, unspecified; F17.210 Nicotine dependence, cigarettes, uncomplicated; Z85.3 Personal history of malignant neoplasm of breast

== ENCOUNTER 2017-06-12 00:35 | Emergency (ER) | payer MEDICARE, MEDICAID ==
[2006-02-04 11:28] VITALS: BP 143/74
[~2017-06-12] VITALS: Ht 165.1 cm; Wt 54.1 kg
[2017-06-12 00:38] VITALS: TEMP 97.8
[2017-06-12 01:07] LABS: COLLECTION METHOD CLEAN CATCH
[2017-06-12 01:16] LABS: PH 6 (5-8); SQUAMOUS EPITHELIAL 0-2 /hpf; URINE APPEARANCE Clear; URINE BACTERIA None Seen /hpf; URINE BILIRUBIN Negative (NEGATIVE); URINE BLOOD Negative (NEGATIVE); URINE COLOR Straw; URINE GLUCOSE 3+ (NEGATIVE); URINE KETONE Negative (NEGATIVE); URINE LEUKOCYTE ESTERASE Trace (NEGATIVE); URINE NITRATE Negative (NEGATIVE); URINE PROTEIN(semi-quant) Negative (NEGATIVE); URINE RBC 0-2 /hpf; URINE UROBILINOGEN Negative (NEGATIVE)
[2017-06-12 01:53] LABS: BASO % 0.4 % (0.0-2.0); EOS # 0.1 (0.0-0.7); GRAN # 4.1 (1.4-6.5); GRAN % 60.7 % (42.2-75.2); LYMPH # 1.9 (1.2-3.4); LYMPH % 27.9 % (20.0-51.0); MEAN CELL VOLUME 91 fl (80.0-100.0); MEAN CORPUSCULAR HGB CONC 34 g/dl (33.0-37.0); MEAN PLATELET VOLUME 10.1 fl (7.4-10.4); MONO # 0.7 (0.1-0.6); MONO % 9.9 % (1.7-9.3); PLATELET COUNT 306 K/mm3 (130-400); RED BLOOD COUNT 3.46 M/mm3 (4.10-5.30)
[2017-06-12 02:02] LABS: HEMATOCRIT 31.4 % (37.0-47.0); HEMOGLOBIN 10.7 g/dl (12.5-16.0); MEAN CORPUSCULAR HEMOGLOBIN 31 pg (27.0-31.0)
[2017-06-12 02:06] LABS: ALANINE AMINOTRANSFERASE 30 U/L (9-52); ALBUMIN 3.5 gm/dL (3.5-5.0); ALKALINE PHOSPHATASE 66 U/L (50-136); ANION GAP 14 mmol/L (7-16); AST,SGOT 21 U/L (15-37); BILIRUBIN,TOTAL 0.2 mg/dL (0.0-1.0); BLOOD UREA NITROGEN 8 mg/dL (7-17); CALCIUM 8.9 mg/dL (8.4-10.2); CARBON DIOXIDE 22 mmol/L (22-30); CHLORIDE 103 mmol/L (98-107); CREATININE, serum 0.58 mg/dL (0.52-1.25); LIPASE 418 U/L (23-300); POTASSIUM 3.8 mmol/L (3.4-5.0); SODIUM 139 mmol/L (137-145); TOTAL PROTEIN 7.3 gm/dL (6.4-8.2)
[2017-06-12 02:08] LABS: C-REACTIVE PROTEIN < 0.5 mg/dL (0.0-0.9); GLUCOSE 569 mg/dL (74-106)
[2017-06-12] MEDS ORDERED: ZOFRAN 4MG T4 MG/TAB PO (03:50)
[2017-06-12 04:15] VITALS: BP 159/93; PULSE 98
[2017-06-13] MEDS ORDERED: ZOFRAN ODT4 MG PO (16:02)
[2017-06-13] MEDS ORDERED: BACTRIM DS 8001 TAB PO (16:02)
== END 2017-06-12 04:15 | disposition home or self-care (01) ==
LOC: COL.ER 00:35
PROVIDERS: Emergency Medicine
DX: K86.1 Other chronic pancreatitis (principal); I50.9 Heart failure, unspecified; Z85.3 Personal history of malignant neoplasm of breast; Z87.19 Personal history of other diseases of the digestive system; Z98.51 Tubal ligation status; Z90.49 Acquired absence of other specified parts of digestive tract; Z79.4 Long term (current) use of insulin
CPT/HCPCS: J0500; J1815; J2405; J3010; J7030

== ENCOUNTER 2017-06-13 13:20 | Emergency (ER) | payer MEDICARE, MEDICAID ==
[2006-02-04 11:28] VITALS: BP 143/74
[~2017-06-13] VITALS: Ht 165.1 cm; Wt 61.8 kg
[~2017-06-13 13:20] MED LIST changes: +ZOFRAN 4MG T4 MG/TAB PO
[2017-06-13 13:27] VITALS: TEMP 97
[2017-06-13 14:20] LABS: COLLECTION METHOD CLEAN CATCH
[2017-06-13 14:31] LABS: MUCOUS Present /lpf; PH 7 (5-8); SQUAMOUS EPITHELIAL 0-2 /hpf; URINE APPEARANCE Clear; URINE BACTERIA None Seen /hpf; URINE BILIRUBIN Negative (NEGATIVE); URINE BLOOD Negative (NEGATIVE); URINE COLOR Yellow; URINE GLUCOSE 3+ (NEGATIVE); URINE KETONE Negative (NEGATIVE); URINE LEUKOCYTE ESTERASE Trace (NEGATIVE); URINE NITRATE Negative (NEGATIVE); URINE PROTEIN(semi-quant) Negative (NEGATIVE); URINE RBC 0-2 /hpf; URINE UROBILINOGEN Negative (NEGATIVE)
[2017-06-13 14:34] LABS: BASO % 0.2 % (0.0-2.0); EOS # 0.1 (0.0-0.7); EOS % 0.4 % (0-4.0); GRAN # 11.1 (1.4-6.5); GRAN % 83.8 % (42.2-75.2); HEMOGLOBIN 12.5 g/dl (12.5-16.0); LYMPH # 1.1 (1.2-3.4); LYMPH % 8.3 % (20.0-51.0); MEAN CELL VOLUME 88 fl (80.0-100.0); MEAN CORPUSCULAR HEMOGLOBIN 31 pg (27.0-31.0); MEAN CORPUSCULAR HGB CONC 35 g/dl (33.0-37.0); MEAN PLATELET VOLUME 9.9 fl (7.4-10.4); MONO # 0.9 (0.1-0.6); PLATELET COUNT 293 K/mm3 (130-400); RED BLOOD COUNT 4.06 M/mm3 (4.10-5.30); REDCELL DISTRIBUTION WIDTH-CV 14.1 % (11.5-14.5)
[2017-06-13 14:40] LABS: HEMATOCRIT 35.9 % (37.0-47.0)
[2017-06-13 14:51] LABS: ALANINE AMINOTRANSFERASE 43 U/L (9-52); ALBUMIN 3.9 gm/dL (3.5-5.0); ALKALINE PHOSPHATASE 79 U/L (50-136); ANION GAP 13 mmol/L (7-16); AST,SGOT 38 U/L (15-37); BILIRUBIN,TOTAL 0.5 mg/dL (0.0-1.0); BLOOD UREA NITROGEN 16 mg/dL (7-17); CALCIUM 9.8 mg/dL (8.4-10.2); CARBON DIOXIDE 23 mmol/L (22-30); CHLORIDE 103 mmol/L (98-107); CREATININE, serum 0.61 mg/dL (0.52-1.25); GLUCOSE 244 mg/dL (74-106); LIPASE 209 U/L (23-300); POTASSIUM 4.4 mmol/L (3.4-5.0); SODIUM 139 mmol/L (137-145); TOTAL PROTEIN 8.4 gm/dL (6.4-8.2)
[2017-06-13 14:52] LABS: C-REACTIVE PROTEIN < 0.5 mg/dL (0.0-0.9)
[2017-06-13] MEDS ORDERED: BACTRIM DS 8001 TAB PO (16:02)
[2017-06-13] MEDS ORDERED: ZOFRAN ODT4 MG PO (16:02)
[2017-06-13 16:25] VITALS: BP 128/79; PULSE 98
== END 2017-06-13 16:26 | disposition home or self-care (01) ==
LOC: COL.ER 13:20
PROVIDERS: Physician Assistant
DX: N39.0 Urinary tract infection, site not specified (principal); R11.10 Vomiting, unspecified; R19.7 Diarrhea, unspecified; E11.9 Type 2 diabetes mellitus without complications; Z79.4 Long term (current) use of insulin
CPT/HCPCS: J2550; J3010; J7030

== ENCOUNTER 2017-08-20 19:19 | Emergency (ER) | payer MEDICARE, MEDICAID ==
[2006-02-04 11:28] VITALS: BP 143/74
[~2017-08-20] VITALS: Ht 165.1 cm; Wt 52.7 kg
[~2017-08-20 19:19] MED LIST changes: +ZOFRAN ODT4 MG PO
[2017-08-20 19:21] VITALS: BP 121/67; PULSE 103; TEMP 102.1
== END 2017-08-20 20:03 | disposition left against medical advice (07) ==
LOC: COL.ER 19:19
DX: R05 Cough (principal)

== ENCOUNTER 2017-08-22 10:14 | Emergency (ER) | payer MEDICARE, MEDICAID ==
[2006-02-04 11:28] VITALS: BP 143/74
[~2017-08-22] VITALS: Ht 165.1 cm; Wt 52.7 kg
[2017-08-22 10:18] VITALS: BP 139/79; TEMP 99.3
[2017-08-22 11:08] LABS: HEMOGLOBIN 10.3 g/dl (12.5-16.0); MEAN CELL VOLUME 86 fl (80.0-100.0); MEAN CORPUSCULAR HEMOGLOBIN 29 pg (27.0-31.0); MEAN CORPUSCULAR HGB CONC 34 g/dl (33.0-37.0); MEAN PLATELET VOLUME 9.9 fl (7.4-10.4); PLATELET COUNT 300 K/mm3 (130-400); RED BLOOD COUNT 3.51 M/mm3 (4.10-5.30); REDCELL DISTRIBUTION WIDTH-CV 12.7 % (11.5-14.5)
[2017-08-22 11:10] LABS: HEMATOCRIT 30.1 % (37.0-47.0)
[2017-08-22 11:12] LABS: ALBUMIN 3.2 gm/dL (3.5-5.0); BILIRUBIN,TOTAL 0.4 mg/dL (0.0-1.0); CALCIUM 8.5 mg/dL (8.4-10.2); CREATININE, serum 0.52 mg/dL (0.52-1.25); POTASSIUM 3.3 mmol/L (3.4-5.0); TOTAL PROTEIN 7.9 gm/dL (6.4-8.2)
[2017-08-22] MEDS ORDERED: LEVAQUIN 750MG750 M1 PO (11:32)
[2017-08-22] MEDS ORDERED: VENTOLIN0.09 MG IH (11:34)
[2017-08-22 11:45] VITALS: PULSE 107
[2017-08-22 12:38] LABS: BAND 4 % (0-10); BASOPHIL 1 % (0-2); LYMPHOCYTE 33 % (20.0-51.0); NEUTROPHILS 61 % (42.0-75.2); PLATELET ESTIMATE INCREASED (NORMAL)
== END 2017-08-22 11:46 | disposition home or self-care (01) ==
LOC: COL.ER 10:14
PROVIDERS: Physician Assistant Medical
DX: J18.1 Lobar pneumonia, unspecified organism (principal); E11.9 Type 2 diabetes mellitus without complications; I10 Essential (primary) hypertension; B19.20 Unspecified viral hepatitis C without hepatic coma; F43.10 Post-traumatic stress disorder, unspecified; F17.210 Nicotine dependence, cigarettes, uncomplicated; F12.90 Cannabis use, unspecified, uncomplicated; F14.90 Cocaine use, unspecified, uncomplicated; F15.90 Other stimulant use, unspecified, uncomplicated; Z85.3 Personal history of malignant neoplasm of breast; Z90.49 Acquired absence of other specified parts of digestive tract; Z98.51 Tubal ligation status; Z90.12 Acquired absence of left breast and nipple; Z79.4 Long term (current) use of insulin; Z88.6 Allergy status to analgesic agent; Z88.1 Allergy status to other antibiotic agents

== ENCOUNTER 2017-12-26 07:28 | Emergency (ER) | payer MEDICARE, MEDICAID ==
[2006-02-04 11:28] VITALS: BP 143/74
[~2017-12-26] VITALS: Ht 167.6 cm; Wt 46.4 kg
[~2017-12-26 07:28] MED LIST changes: +LEVAQUIN 750MG750 M1 PO
[2017-12-26 07:33] VITALS: BP 118/118; TEMP 97.9
[2017-12-26 08:01] LABS: BASO % 0.3 % (0.0-2.0); EOS # 0.1 (0.0-0.7); EOS % 0.8 % (0-4.0); GRAN % 65.4 % (42.2-75.2); HEMOGLOBIN 10.5 g/dl (12.5-16.0); LYMPH # 1.9 (1.2-3.4); LYMPH % 24.2 % (20.0-51.0); MEAN CELL VOLUME 86 fl (80.0-100.0); MEAN CORPUSCULAR HEMOGLOBIN 29 pg (27.0-31.0); MEAN CORPUSCULAR HGB CONC 34 g/dl (33.0-37.0); MEAN PLATELET VOLUME 10.2 fl (7.4-10.4); MONO # 0.7 (0.1-0.6); MONO % 9.2 % (1.7-9.3); PLATELET COUNT 268 K/mm3 (130-400); RED BLOOD COUNT 3.59 M/mm3 (4.10-5.30); REDCELL DISTRIBUTION WIDTH-CV 13.1 % (11.5-14.5)
[2017-12-26 08:03] LABS: HEMATOCRIT 30.7 % (37.0-47.0)
[2017-12-26 08:11] LABS: ALBUMIN 3.6 gm/dL (3.5-5.0); BILIRUBIN,TOTAL 0.4 mg/dL (0.0-1.0); C-REACTIVE PROTEIN 0.7 mg/dL (0.0-0.9); CALCIUM 8.8 mg/dL (8.4-10.2); CREATININE, serum 0.64 mg/dL (0.52-1.25); TOTAL PROTEIN 7.7 gm/dL (6.4-8.2)
[2017-12-26] MEDS ORDERED: AMOXICILLIN 8751 TAB PO (08:51)
[2017-12-26] MEDS ORDERED: DOXYCYCLINE 10100 MG PO (08:51)
[2017-12-26 09:37] VITALS: PULSE 104
== END 2017-12-26 09:36 | disposition home or self-care (01) ==
LOC: COL.ER 07:28
PROVIDERS: Physician Assistant
DX: S91.341A Puncture wound with foreign body, right foot, initial encounter (principal); L08.9 Local infection of the skin and subcutaneous tissue, unspecified; E11.9 Type 2 diabetes mellitus without complications; Z79.4 Long term (current) use of insulin
CPT/HCPCS: J7030

== ENCOUNTER 2018-01-04 04:48 | Inpatient (IN) | payer MEDICARE, MEDICAID ==
[~2018-01-04] VITALS: Ht 167.6 cm; Wt 51.6 kg
[~2018-01-04 04:48] MED LIST changes: +AMOXICILLIN 8751 TAB PO
[2018-01-04 05:55] LABS: BASO % 0.5 % (0.0-2.0); EOS # 0.1 (0.0-0.7); EOS % 1.3 % (0-4.0); GRAN # 3.2 (1.4-6.5); HEMOGLOBIN 10.4 g/dl (12.5-16.0); LYMPH # 2.1 (1.2-3.4); LYMPH % 34.7 % (20.0-51.0); MEAN CELL VOLUME 86 fl (80.0-100.0); MEAN CORPUSCULAR HEMOGLOBIN 30 pg (27.0-31.0); MEAN CORPUSCULAR HGB CONC 35 g/dl (33.0-37.0); MEAN PLATELET VOLUME 9.6 fl (7.4-10.4); MONO # 0.6 (0.1-0.6); MONO % 10.3 % (1.7-9.3); PLATELET COUNT 262 K/mm3 (130-400)
[2018-01-04 06:17] LABS: ALANINE AMINOTRANSFERASE 37 U/L (9-52); ALBUMIN 3.7 gm/dL (3.5-5.0); ALKALINE PHOSPHATASE 69 U/L (50-136); ANION GAP 7 mmol/L (7-16); AST,SGOT 43 U/L (15-37); BILIRUBIN,TOTAL 0.3 mg/dL (0.0-1.0); BLOOD UREA NITROGEN 22 mg/dL (7-17); C-REACTIVE PROTEIN < 0.5 mg/dL (0.0-0.9); CALCIUM 9.2 mg/dL (8.4-10.2); CARBON DIOXIDE 25 mmol/L (22-30); CHLORIDE 105 mmol/L (98-107); CREATININE, serum 0.74 mg/dL (0.52-1.25); GLUCOSE 237 mg/dL (74-106); SODIUM 137 mmol/L (137-145); TOTAL PROTEIN 7.6 gm/dL (6.4-8.2)
[2018-01-04 06:19] LABS: ERYTHROCYTE SEDIMENTATION RATE 56 mm/hr (0-30)
[2018-01-04 09:44] VITALS: BP 141/96; PULSE 101; TEMP 97.4
[2018-01-04 13:52] VITALS: BP 152/92; PULSE 108; TEMP 98.1
[2018-01-04 18:06] VITALS: BP 153/108; PULSE 103; TEMP 98.4
[2018-01-05 01:00] VITALS: BP 127/86; PULSE 102; TEMP 98.2
[2018-01-05 04:39] VITALS: BP 150/98; PULSE 74
[2018-01-05 08:47] VITALS: BP 122/77; PULSE 104; TEMP 98.4
[2018-01-05 09:32] LABS: BASO % 0.6 % (0.0-2.0); EOS # 0.1 (0.0-0.7); EOS % 1.3 % (0-4.0); GRAN # 2.6 (1.4-6.5); GRAN % 50.1 % (42.2-75.2); HEMATOCRIT 35.1 % (37.0-47.0); HEMOGLOBIN 12.1 g/dl (12.5-16.0); LYMPH % 37.4 % (20.0-51.0); MEAN CELL VOLUME 86 fl (80.0-100.0); MEAN CORPUSCULAR HEMOGLOBIN 30 pg (27.0-31.0); MEAN CORPUSCULAR HGB CONC 35 g/dl (33.0-37.0); MEAN PLATELET VOLUME 10.3 fl (7.4-10.4); MONO # 0.6 (0.1-0.6); MONO % 10.6 % (1.7-9.3); PLATELET COUNT 264 K/mm3 (130-400); RED BLOOD COUNT 4.08 M/mm3 (4.10-5.30); REDCELL DISTRIBUTION WIDTH-CV 13.2 % (11.5-14.5)
[2018-01-05 09:36] LABS: ALBUMIN 3.6 gm/dL (3.5-5.0); BILIRUBIN,TOTAL 0.4 mg/dL (0.0-1.0); CALCIUM 9.4 mg/dL (8.4-10.2); CREATININE, serum 0.69 mg/dL (0.52-1.25); POTASSIUM 4.6 mmol/L (3.4-5.0); TOTAL PROTEIN 7.7 gm/dL (6.4-8.2)
[2018-01-05 11:11] VITALS: BP 103/49; BP 114/70; PULSE 95; TEMP 98.2
[2018-01-05] MEDS ORDERED: SMZ/TMPDS PO (15:52)
== END 2018-01-05 16:00 | disposition left against medical advice (07) | DRG 638 ==
LOC: COL.ER 04:48 → MEDICAL 07:24
PROVIDERS: Emergency Medicine; Student in an Organized Health Care Education/Training Program
DX: E11.628 Type 2 diabetes mellitus with other skin complications (principal); K86.1 Other chronic pancreatitis; L03.031 Cellulitis of right toe; I11.0 Hypertensive heart disease with heart failure; I50.9 Heart failure, unspecified; Z79.4 Long term (current) use of insulin; F20.9 Schizophrenia, unspecified; F31.9 Bipolar disorder, unspecified; F43.10 Post-traumatic stress disorder, unspecified; F44.81 Dissociative identity disorder; F17.210 Nicotine dependence, cigarettes, uncomplicated
CPT/HCPCS: 99223-AI; 99233-AI; 99239; J1170; J1650; J1815; J2543; J3370; J7030; J7050

== ENCOUNTER 2018-02-19 18:23 | Emergency (ER) | payer MEDICARE, MEDICAID ==
[2006-02-04 11:28] VITALS: BP 143/74
[~2018-02-19] VITALS: Ht 167.6 cm; Wt 52.7 kg
[~2018-02-19 18:23] MED LIST changes: +SMZ/TMPDS PO
[2018-02-19 18:31] VITALS: TEMP 97.6
[2018-02-19 20:10] LABS: BASO % 0.2 % (0.0-2.0); EOS # 0.1 (0.0-0.7); EOS % 0.6 % (0-4.0); GRAN # 6.4 (1.4-6.5); GRAN % 77.3 % (42.2-75.2); LYMPH # 1.3 (1.2-3.4); MEAN CELL VOLUME 89 fl (80.0-100.0); MEAN CORPUSCULAR HEMOGLOBIN 29 pg (27.0-31.0); MEAN CORPUSCULAR HGB CONC 33 g/dl (33.0-37.0); MEAN PLATELET VOLUME 9.8 fl (7.4-10.4); MONO # 0.4 (0.1-0.6); MONO % 5.3 % (1.7-9.3); PLATELET COUNT 456 K/mm3 (130-400); RED BLOOD COUNT 4.08 M/mm3 (4.10-5.30); REDCELL DISTRIBUTION WIDTH-CV 12.8 % (11.5-14.5)
[2018-02-19 20:11] LABS: HEMATOCRIT 36.3 % (37.0-47.0)
[2018-02-19 20:17] LABS: ALBUMIN 3.3 gm/dL (3.5-5.0); BILIRUBIN,TOTAL 0.3 mg/dL (0.0-1.0); CREATININE, serum 0.8 mg/dL (0.52-1.25); POTASSIUM 3.8 mmol/L (3.4-5.0); TOTAL PROTEIN 7.6 gm/dL (6.4-8.2)
[2018-02-19 20:38] LABS: COLLECTION METHOD CLEAN CATCH
[2018-02-19 20:47] LABS: MUCOUS Present /lpf; PH 6 (5-8); URINE APPEARANCE Clear; URINE BACTERIA None Seen /hpf; URINE BILIRUBIN Negative (NEGATIVE); URINE BLOOD Negative (NEGATIVE); URINE COLOR Yellow; URINE GLUCOSE 3+ (NEGATIVE); URINE KETONE Negative (NEGATIVE); URINE LEUKOCYTE ESTERASE Negative (NEGATIVE); URINE NITRATE Negative (NEGATIVE); URINE PROTEIN(semi-quant) Negative (NEGATIVE); URINE UROBILINOGEN Negative (NEGATIVE)
[2018-02-19] MEDS ORDERED: AMOXICILLIN 50500 MG PO (21:26)
[2018-02-19] MEDS ORDERED: DOXYCYCLINE 10100 MG PO (21:26)
[2018-02-19 22:10] VITALS: BP 104/62; PULSE 111
== END 2018-02-19 22:10 | disposition home or self-care (01) ==
LOC: COL.ER 18:23
PROVIDERS: Physician Assistant
DX: J18.1 Lobar pneumonia, unspecified organism (principal); I10 Essential (primary) hypertension; E11.9 Type 2 diabetes mellitus without complications; F17.210 Nicotine dependence, cigarettes, uncomplicated; Z79.4 Long term (current) use of insulin; Z85.3 Personal history of malignant neoplasm of breast
CPT/HCPCS: J1815; Q9967

== ENCOUNTER 2018-06-06 15:06 | Emergency (ER) | payer MEDICARE, MEDICAID ==
[2006-02-04 11:28] VITALS: BP 143/74
[~2018-06-06] VITALS: Ht 167.6 cm; Wt 52.7 kg
[2018-06-06 15:27] VITALS: TEMP 98.9
[2018-06-06 16:44] LABS: BASO % 0.2 % (0.0-2.0); EOS % 0.1 % (0-4.0); GRAN # 11.3 (1.4-6.5); HEMOGLOBIN 12.1 g/dl (12.5-16.0); LYMPH # 1.4 (1.2-3.4); LYMPH % 10.7 % (20.0-51.0); MEAN CELL VOLUME 84 fl (80.0-100.0); MEAN CORPUSCULAR HEMOGLOBIN 31 pg (27.0-31.0); MEAN CORPUSCULAR HGB CONC 36 g/dl (33.0-37.0); MEAN PLATELET VOLUME 10.2 fl (7.4-10.4); MONO # 0.6 (0.1-0.6); MONO % 4.6 % (1.7-9.3); PLATELET COUNT 279 K/mm3 (130-400); RED BLOOD COUNT 3.97 M/mm3 (4.10-5.30); REDCELL DISTRIBUTION WIDTH-CV 11.8 % (11.5-14.5)
[2018-06-06 16:45] LABS: HEMATOCRIT 33.5 % (37.0-47.0)
[2018-06-06 16:55] LABS: ALBUMIN 3.6 gm/dL (3.5-5.0); BILIRUBIN,TOTAL 0.2 mg/dL (0.0-1.0); C-REACTIVE PROTEIN 0.9 mg/dL (0.0-0.9); CREATININE, serum 0.72 mg/dL (0.52-1.25); POTASSIUM 3.3 mmol/L (3.4-5.0); TOTAL PROTEIN 8.1 gm/dL (6.4-8.2)
[2018-06-06] MEDS ORDERED: CEPHALEXIN500 M1 PO (17:45)
[2018-06-06] MEDS ORDERED: DOXYCYCLINE HY100 MG PO (17:45)
[2018-06-06] MEDS ORDERED: ALBENZA200 M1 PO (17:45)
[2018-06-06 17:53] VITALS: BP 110/69; PULSE 114
== END 2018-06-06 18:03 | disposition home or self-care (01) ==
LOC: COL.ER 15:06
PROVIDERS: Emergency Medicine
DX: I89.0 Lymphedema, not elsewhere classified (principal); L03.114 Cellulitis of left upper limb; E11.9 Type 2 diabetes mellitus without complications; Z85.3 Personal history of malignant neoplasm of breast; Z79.4 Long term (current) use of insulin

== ENCOUNTER 2018-07-21 20:52 | Emergency (ER) | payer MEDICARE, MEDICAID ==
[~2018-07-21 20:52] MED LIST changes: +ALBENZA200 M1 PO; +DOXYCYCLINE HY100 MG PO
[2018-07-21 22:28] LABS: BASO % 0.5 % (0.0-2.0); EOS % 0.3 % (0-4.0); GRAN % 50.8 % (42.2-75.2); LYMPH # 2.2 (1.2-3.4); MEAN CELL VOLUME 87 fl (80.0-100.0); MEAN CORPUSCULAR HEMOGLOBIN 29 pg (27.0-31.0); MEAN CORPUSCULAR HGB CONC 34 g/dl (33.0-37.0); MEAN PLATELET VOLUME 10.5 fl (7.4-10.4); MONO # 0.7 (0.1-0.6); MONO % 12.2 % (1.7-9.3); PLATELET COUNT 227 K/mm3 (130-400); RED BLOOD COUNT 3.74 M/mm3 (4.10-5.30); REDCELL DISTRIBUTION WIDTH-CV 12.5 % (11.5-14.5)
[2018-07-21 22:32] LABS: HEMATOCRIT 32.4 % (37.0-47.0)
[2018-07-21 22:47] LABS: ALANINE AMINOTRANSFERASE 87 U/L (9-52); ALBUMIN 3.8 gm/dL (3.5-5.0); ALKALINE PHOSPHATASE 78 U/L (50-136); ANION GAP 11 mmol/L (7-16); AST,SGOT 84 U/L (15-37); BILIRUBIN,TOTAL 0.5 mg/dL (0.0-1.0); BLOOD UREA NITROGEN 19 mg/dL (7-17); CARBON DIOXIDE 22 mmol/L (22-30); CHLORIDE 98 mmol/L (98-107); CREATININE, serum 0.82 (0.52-1.25); LIPASE 292 U/L (23-300); POTASSIUM 4.5 mmol/L (3.4-5.0); SODIUM 131 mmol/L (137-145); TOTAL PROTEIN 8.1 gm/dL (6.4-8.2)
[2018-07-21 22:51] LABS: C-REACTIVE PROTEIN < 0.5 mg/dL (0.0-0.9); GLUCOSE 525 mg/dL (74-106)
[2018-07-22] MEDS ORDERED: ALBENZA200 M1 PO (02:09)
[2018-07-22 09:58] VITALS: BP 135/82; PULSE 96; TEMP 98.7
== END 2018-07-22 10:06 | disposition home or self-care (01) ==
LOC: COL.ER 20:52
PROVIDERS: Physician Assistant
DX: R10.9 Unspecified abdominal pain (principal); E11.649 Type 2 diabetes mellitus with hypoglycemia without coma; I10 Essential (primary) hypertension; F41.9 Anxiety disorder, unspecified; F17.210 Nicotine dependence, cigarettes, uncomplicated; F25.1 Schizoaffective disorder, depressive type; Z79.4 Long term (current) use of insulin; Z87.19 Personal history of other diseases of the digestive system; Z90.49 Acquired absence of other specified parts of digestive tract; Z98.51 Tubal ligation status
CPT/HCPCS: J1815; J2060; J7030

== ENCOUNTER 2018-07-28 11:54 | Emergency (ER) | payer MEDICARE, MEDICAID ==
[2006-02-04 11:28] VITALS: BP 143/74
[~2018-07-28] VITALS: Ht 167.6 cm; Wt 48.2 kg
[2018-07-28 11:57] VITALS: BP 163/89; PULSE 112; TEMP 98
== END 2018-07-28 12:37 | disposition left against medical advice (07) ==
LOC: COL.ER 11:54
DX: R19.7 Diarrhea, unspecified (principal); E11.9 Type 2 diabetes mellitus without complications; F43.10 Post-traumatic stress disorder, unspecified; F31.9 Bipolar disorder, unspecified; F17.210 Nicotine dependence, cigarettes, uncomplicated; Z85.3 Personal history of malignant neoplasm of breast; Z86.19 Personal history of other infectious and parasitic diseases; Z87.42 Personal history of other diseases of the female genital tract; Z79.4 Long term (current) use of insulin

== ENCOUNTER → 2018-08-19 | Outpatient (CLI) | payer MEDICARE, MEDICAID | LOC: COL.LAB 19:27 | DX: B89 Unspecified parasitic disease (principal) ==

== ENCOUNTER 2018-10-03 08:29 | Emergency (ER) | payer MEDICARE, MEDICAID ==
[2006-02-04 11:28] VITALS: BP 143/74
[~2018-10-03] VITALS: Ht 167.6 cm; Wt 50.0 kg
[2018-10-03 09:18] VITALS: BP 130/77; TEMP 98.5
[2018-10-03 10:02] LABS: BASO % 0.2 % (0.0-2.0); EOS % 0.1 % (0-4.0); GRAN # 11.5 (1.4-6.5); GRAN % 82.7 % (42.2-75.2); HEMOGLOBIN 11.3 g/dl (12.5-16.0); LYMPH # 1.5 (1.2-3.4); LYMPH % 10.9 % (20.0-51.0); MEAN CELL VOLUME 85 fl (80.0-100.0); MEAN CORPUSCULAR HEMOGLOBIN 29 pg (27.0-31.0); MEAN CORPUSCULAR HGB CONC 34 g/dl (33.0-37.0); MEAN PLATELET VOLUME 10.1 fl (7.4-10.4); MONO # 0.8 (0.1-0.6); MONO % 5.7 % (1.7-9.3); PLATELET COUNT 370 K/mm3 (130-400); REDCELL DISTRIBUTION WIDTH-CV 12.5 % (11.5-14.5)
[2018-10-03 10:08] LABS: INR 0.9 (0.8-3.0); PROTHROMBIN TIME 10.7 SECONDS (9.7-12.8)
[2018-10-03] MEDS ORDERED: DOXYCYCLINE 10100 MG PO (10:24)
[2018-10-03 11:06] LABS: ALANINE AMINOTRANSFERASE < 6 U/L (9-52); ALBUMIN 3.5 gm/dL (3.5-5.0); ALKALINE PHOSPHATASE 100 U/L (50-136); ANION GAP 14 mmol/L (7-16); AST,SGOT 34 U/L (15-37); BILIRUBIN,TOTAL 0.3 mg/dL (0.0-1.0); BLOOD UREA NITROGEN 14 mg/dL (7-17); CALCIUM 8.9 mg/dL (8.4-10.2); CARBON DIOXIDE 22 mmol/L (22-30); POTASSIUM 5.2 mmol/L (3.4-5.0); SODIUM 125 mmol/L (137-145); TOTAL PROTEIN 8.9 gm/dL (6.4-8.2)
[2018-10-03 11:08] LABS: CHLORIDE 89 mmol/L (98-107)
[2018-10-03 11:33] LABS: GLUCOSE 669 mg/dL (74-106)
[2018-10-03 11:46] LABS: TROPONIN-I < 0.012 ng/mL (0.000-0.035)
[2018-10-03 11:53] LABS: C-REACTIVE PROTEIN 1.6 mg/dL (0.0-0.9); LIPASE 280 U/L (23-300)
[2018-10-03] MEDS ORDERED: OMNICEF 300MG300 MG PO (11:57)
[2018-10-03 13:49] LABS: CALCIUM 8.5 mg/dL (8.4-10.2); CREATININE, serum 0.48 (0.52-1.25); POTASSIUM 4.2 mmol/L (3.4-5.0)
[2018-10-03 14:40] VITALS: PULSE 83
== END 2018-10-03 14:40 | disposition home or self-care (01) ==
LOC: COL.ER 08:29
PROVIDERS: Emergency Medicine
DX: J18.9 Pneumonia, unspecified organism (principal); E11.65 Type 2 diabetes mellitus with hyperglycemia; I10 Essential (primary) hypertension; F31.9 Bipolar disorder, unspecified; F43.10 Post-traumatic stress disorder, unspecified; F17.210 Nicotine dependence, cigarettes, uncomplicated; F12.90 Cannabis use, unspecified, uncomplicated; F15.90 Other stimulant use, unspecified, uncomplicated; Z79.4 Long term (current) use of insulin
CPT/HCPCS: A4216; J0696; J1815; J3010; J7030

== ENCOUNTER → 2018-11-05 | Outpatient (CLI) | payer MEDICARE, MEDICAID ==
[2018-11-05 15:49] LABS: STOOL FOR OCCULT BLOOD NEGATIVE (NEGATIVE)
== END ==
LOC: COL.LAB 14:31
PROVIDERS: Physician Assistant Medical
DX: L29.0 Pruritus ani (principal); R19.7 Diarrhea, unspecified

== ENCOUNTER 2018-11-11 21:45 | Emergency (ER) | payer MEDICARE, MEDICAID ==
[2006-02-04 11:28] VITALS: BP 143/74
[~2018-11-11] VITALS: Ht 167.6 cm; Wt 45.5 kg
[2018-11-11 21:52] VITALS: TEMP 98.6
[2018-11-11 22:24] LABS: BASO % 0.3 % (0.0-2.0); EOS # 0.1 (0.0-0.7); GRAN # 3.9 (1.4-6.5); GRAN % 62.4 % (42.2-75.2); HEMOGLOBIN 11.4 g/dl (12.5-16.0); LYMPH # 1.7 (1.2-3.4); LYMPH % 27.7 % (20.0-51.0); MEAN CELL VOLUME 86 fl (80.0-100.0); MEAN CORPUSCULAR HEMOGLOBIN 30 pg (27.0-31.0); MEAN CORPUSCULAR HGB CONC 35 g/dl (33.0-37.0); MONO # 0.5 (0.1-0.6); MONO % 8.4 % (1.7-9.3); PLATELET COUNT 265 K/mm3 (130-400); RED BLOOD COUNT 3.85 M/mm3 (4.10-5.30); REDCELL DISTRIBUTION WIDTH-CV 13.2 % (11.5-14.5)
[2018-11-11 22:36] LABS: ALANINE AMINOTRANSFERASE 15 U/L (9-52); ALBUMIN 3.8 gm/dL (3.5-5.0); ALKALINE PHOSPHATASE 75 U/L (50-136); ANION GAP 11 mmol/L (7-16); AST,SGOT 37 U/L (15-37); BILIRUBIN,TOTAL 0.2 mg/dL (0.0-1.0); BLOOD UREA NITROGEN 14 mg/dL (7-17); CALCIUM 9.2 mg/dL (8.4-10.2); CARBON DIOXIDE 25 mmol/L (22-30); CHLORIDE 94 mmol/L (98-107); CREATININE, serum 0.52 (0.52-1.25); GLUCOSE 550 mg/dL (74-106); POTASSIUM 3.5 mmol/L (3.4-5.0); SODIUM 130 mmol/L (137-145); TOTAL PROTEIN 8.5 gm/dL (6.4-8.2)
[2018-11-11 22:37] LABS: ACETONE,SERUM NEGATIVE
[2018-11-11 22:44] LABS: COLLECTION METHOD CLEAN CATCH
[2018-11-11 22:51] LABS: MUCOUS Present /lpf; PH 6 (5-8); SQUAMOUS EPITHELIAL 0-2 /hpf; URINE APPEARANCE Clear; URINE BACTERIA Rare /hpf; URINE BILIRUBIN Negative (NEGATIVE); URINE BLOOD 3+ (NEGATIVE); URINE COLOR Colorless; URINE GLUCOSE 3+ (NEGATIVE); URINE KETONE Negative (NEGATIVE); URINE LEUKOCYTE ESTERASE Negative (NEGATIVE); URINE NITRATE Negative (NEGATIVE); URINE PROTEIN(semi-quant) Negative (NEGATIVE); URINE RBC 0-2 /hpf; URINE UROBILINOGEN Negative (NEGATIVE)
[2018-11-12 00:40] VITALS: BP 126/81; PULSE 96
== END 2018-11-12 00:58 | disposition home or self-care (01) ==
LOC: COL.ER 21:45
PROVIDERS: Nurse Practitioner
DX: E11.65 Type 2 diabetes mellitus with hyperglycemia (principal); I11.0 Hypertensive heart disease with heart failure; I50.9 Heart failure, unspecified; F31.9 Bipolar disorder, unspecified; F43.10 Post-traumatic stress disorder, unspecified; B19.20 Unspecified viral hepatitis C without hepatic coma; F17.210 Nicotine dependence, cigarettes, uncomplicated; F15.90 Other stimulant use, unspecified, uncomplicated; Z79.4 Long term (current) use of insulin
CPT/HCPCS: J1815; J7030

== ENCOUNTER 2018-12-07 08:18 | Emergency (ER) | payer MEDICARE, MEDICAID ==
[2006-02-04 11:28] VITALS: BP 143/74
[~2018-12-07] VITALS: Ht 167.6 cm; Wt 39.3 kg
[2018-12-07 09:22] LABS: BASO % 0.4 % (0.0-2.0); EOS # 0.1 (0.0-0.7); EOS % 0.8 % (0-4.0); GRAN # 5.1 (1.4-6.5); GRAN % 67.6 % (42.2-75.2); HEMOGLOBIN 12.6 g/dl (12.5-16.0); LYMPH # 1.6 (1.2-3.4); LYMPH % 21.4 % (20.0-51.0); MEAN CELL VOLUME 84 fl (80.0-100.0); MEAN CORPUSCULAR HEMOGLOBIN 29 pg (27.0-31.0); MEAN CORPUSCULAR HGB CONC 35 g/dl (33.0-37.0); MEAN PLATELET VOLUME 10.4 fl (7.4-10.4); MONO # 0.7 (0.1-0.6); MONO % 9.7 % (1.7-9.3); PLATELET COUNT 328 K/mm3 (130-400); RED BLOOD COUNT 4.37 M/mm3 (4.10-5.30); REDCELL DISTRIBUTION WIDTH-CV 12.1 % (11.5-14.5)
[2018-12-07 09:32] LABS: ALANINE AMINOTRANSFERASE 21 U/L (9-52); ALKALINE PHOSPHATASE 114 U/L (50-136); ANION GAP 13 mmol/L (7-16); AST,SGOT 34 U/L (15-37); BILIRUBIN,TOTAL 0.3 mg/dL (0.0-1.0); BLOOD UREA NITROGEN 30 mg/dL (7-17); CALCIUM 9.2 mg/dL (8.4-10.2); CARBON DIOXIDE 25 mmol/L (22-30); CREATININE, serum 0.99 (0.52-1.25); POTASSIUM 4.5 mmol/L (3.4-5.0); SODIUM 125 mmol/L (137-145)
[2018-12-07 09:39] LABS: ACETONE,SERUM NEGATIVE
[2018-12-07 09:41] LABS: CHLORIDE 86 mmol/L (98-107); GLUCOSE 760 mg/dL (74-106); HEMATOCRIT 36.5 % (37.0-47.0)
[2018-12-07] MEDS ORDERED: DOXYCYCLINE 10100 MG PO (12:01)
[2018-12-07] MEDS ORDERED: CEPHALEXIN500 M1 PO (12:01)
[2018-12-07 12:22] VITALS: BP 127/82; PULSE 100; TEMP 97.7
== END 2018-12-07 12:22 | disposition home or self-care (01) ==
LOC: COL.ER 08:18
PROVIDERS: Physician Assistant
DX: S90.821A Blister (nonthermal), right foot, initial encounter (principal); E11.65 Type 2 diabetes mellitus with hyperglycemia; F17.210 Nicotine dependence, cigarettes, uncomplicated; Z88.5 Allergy status to narcotic agent; Z88.1 Allergy status to other antibiotic agents; Z98.51 Tubal ligation status; Z79.4 Long term (current) use of insulin; Z88.6 Allergy status to analgesic agent; Z86.19 Personal history of other infectious and parasitic diseases
CPT/HCPCS: J1815; J7030

== ENCOUNTER 2018-12-17 23:57 | Inpatient (IN) | payer MEDICARE, MEDICAID ==
[~2018-12-17] VITALS: Ht 162.6 cm; Wt 50.0 kg
[2018-12-18 01:06] LABS: BASO % 0.3 % (0.0-2.0); EOS % 0.1 % (0-4.0); GRAN # 7.9 (1.4-6.5); GRAN % 83.6 % (42.2-75.2); HEMOGLOBIN 11.9 g/dl (12.5-16.0); LYMPH # 0.8 (1.2-3.4); LYMPH % 8.2 % (20.0-51.0); MEAN CELL VOLUME 86 fl (80.0-100.0); MEAN CORPUSCULAR HEMOGLOBIN 29 pg (27.0-31.0); MEAN CORPUSCULAR HGB CONC 34 g/dl (33.0-37.0); MEAN PLATELET VOLUME 9.6 fl (7.4-10.4); MONO # 0.7 (0.1-0.6); MONO % 7.2 % (1.7-9.3); PLATELET COUNT 269 K/mm3 (130-400); RED BLOOD COUNT 4.12 M/mm3 (4.10-5.30); REDCELL DISTRIBUTION WIDTH-CV 12.4 % (11.5-14.5)
[2018-12-18 01:07] LABS: HEMATOCRIT 35.3 % (37.0-47.0)
[2018-12-18 01:20] LABS: ALANINE AMINOTRANSFERASE < 6 U/L (9-52); ALBUMIN 3.4 gm/dL (3.5-5.0); ALKALINE PHOSPHATASE 84 U/L (50-136); ANION GAP 13 mmol/L (7-16); AST,SGOT 24 U/L (15-37); BILIRUBIN,TOTAL 0.5 mg/dL (0.0-1.0); BLOOD UREA NITROGEN 14 mg/dL (7-17); C-REACTIVE PROTEIN 7.2 mg/dL (0.0-0.9); CALCIUM 8.4 mg/dL (8.4-10.2); CARBON DIOXIDE 24 mmol/L (22-30); CHLORIDE 95 mmol/L (98-107); CREATININE, serum 0.72 (0.52-1.25); GLUCOSE 301 mg/dL (74-106); LIPASE 37 U/L (23-300); POTASSIUM 3.5 mmol/L (3.4-5.0); SODIUM 132 mmol/L (137-145); TOTAL PROTEIN 7.9 gm/dL (6.4-8.2)
[2018-12-18 01:29] LABS: TROPONIN-I < 0.012 ng/mL (0.000-0.035)
[2018-12-18 01:36] LABS: COLLECTION METHOD CLEAN CATCH
[2018-12-18 01:44] LABS: PH 7 (5-8); SQUAMOUS EPITHELIAL 0-2 /hpf; URINE APPEARANCE Cloudy; URINE BACTERIA None Seen /hpf; URINE BILIRUBIN Negative (NEGATIVE); URINE BLOOD 2+ (NEGATIVE); URINE COLOR Yellow; URINE GLUCOSE 3+ (NEGATIVE); URINE KETONE 1+ (NEGATIVE); URINE LEUKOCYTE ESTERASE 3+ (NEGATIVE); URINE NITRATE Positive (NEGATIVE); URINE PROTEIN(semi-quant) 2+ (NEGATIVE); URINE UROBILINOGEN Negative (NEGATIVE)
[2018-12-18] MEDS ORDERED: BACTRIM DS 8001 TAB PO (03:57)
[2018-12-18] MEDS ORDERED: ZOFRAN 4MG T4 MG/TAB PO (05:22)
[2018-12-18 08:17] VITALS: BP 144/75; PULSE 117; TEMP 98.3
--- NOTE | 2018-12-18 10:30 | NUR ---
Patient arrived to room VIA stretcher from ER and is accompanied by . Is drowsy and resting in bed on her side with eyes closed. Call light and personal items are within reach.
--- NOTE | 2018-12-18 12:54 | NUR ---
Vancomycin Initial Dosing Pharmacy Note Ordering provider: Qiana Brown MD Indication/duration: Sepsis possibly due to MRSA infection, concern for spinal abscess. 7 days Relevant comorbidities: UTI, Rt foot wound, h/o illicit drug use LABS: WBC 9.4, SCr 0.72, CrCl~56, GFR 102 Recommendation: Will give loading dose of Vancomycin 1 gm IV x1, then Vancomycin 750 mg IV q8h. Pharmacy will continue to monitor and check a Vancomycin trough on 12/19/18. Loading dose: 1 gram Maintenance dose: 750 mg every 8 hours Trough goal: 15-20 ug/mL
--- NOTE | 2018-12-18 13:30 | NUR ---
Patient is noted to have a wound to the top of her right foot, wound bed is pink/red in color, appearance is as if patient had a blister to the top of the foot and the skin has been removed. There is no odor noted. It extends from the second to fourth digit and seems superficial. There is some slough noted to the wound bed, some drainage noted to the existing dressing. There is no streaking to foot. Temperature is equavalent to rest of skin and is blanchable. Capillary refil is less than 3 seconds.
--- NOTE | 2018-12-18 14:41 | NUR ---
Plan: Plan is to return home with and DTR Margot in [facility]. Assess: SW met with patient about DC plan. Patient reports that she resides with her DTR and does not want her spouse to know that she is here at this time. Patient indicated that she uses [facility] for medical needs and medications. Patient reports that her PCP is through [facility]. Patient denies having a DPOA but reports that she has a DNR. Patient reports having a cane that she uses 08/10. Patient denies the need for HHS. Action: Educated on follow-up and community resources. No additonal concern at this time.
[2018-12-18 15:43] VITALS: BP 149/88; PULSE 119; TEMP 99.1
[2018-12-18 18:35] VITALS: BP 145/85; PULSE 134; TEMP 103.1
[2018-12-18 19:35] VITALS: BP 133/53; PULSE 133; TEMP 103
--- NOTE | 2018-12-18 19:49 | NUR ---
Patient has been having high alarm alert, spoke with Sharmaine, EKG obtained and resulted sinus tach, patient was just up to restroom. Alert persisted and call was placed to Stephanie who requested another set of VS. Temp elevated to 103, tylenol administered. Stephanie in to see patient. Did notify tele of what was happening. Was asked about alarm limits and they will not be changed at this time. Stephanie would like close watch on patient's situation. Report given to oncoming shift and they were notified of this.
--- NOTE | 2018-12-18 20:30 | NUR ---
Patient given a 1,000 ml IV fluid bolus. Patient still pretty uncomfortable. Will continue to reassess pain and fevers.
--- NOTE | 2018-12-18 23:00 | NUR ---
Report received from VARSHA Hernandez. Patient resting in bed. Assessment complete. Patient has fairly consistently been 130s on tele. Fever was 103.0 prior to shift change and 1 hour after being given tylenol, fever still holding at 103.0. Patient moans with pain but does not ask for pain medication. Will acept it if we offer it however. PRN dilaudid given. Patient has IV zosyn and vancomycin to be ran via IV. No further needs expressed by patient or family member. Will continue to monitor fevers. Call light within reach.
[2018-12-19] VITALS (9 sets, daily range): BP systolic 129–182; BP diastolic 71–109; PULSE 98–123; TEMP 98.6–100.5
--- NOTE | 2018-12-19 01:25 | NUR ---
Patient requests another dose of PRN dilaudid. Blood cultures had come back positive with MRSA. KENDALL Brown notifed. Fever was down to 99 when rechecked around 2200, but upon recheck at 0000 vitals, was back up to 100.0. NS infusing at 150 ml/hr currently. Continuing to monitor temperatures.
--- NOTE | 2018-12-19 05:06 | NUR ---
Patients temperature at the 0 vitals check was 100.4. PRN tylenol given to keep ahead of the fever. IV zosyn currently running at 25 ml/hr. Patient appeared to be in less pain now since receiving her last dose of dilaudid.
--- NOTE | 2018-12-19 06:09 | NUR ---
Patient had uneventful night. Patient had fevers that were improved with tylenol. Vanco and zosyn ran continuously throughout night. 2 doses of dilaudid given for pain. Patient had one episode of diarrhea. Call light within reach.
[2018-12-19 07:00] LABS: BASO % 0.2 % (0.0-2.0); GRAN # 7.1 (1.4-6.5); GRAN % 78.6 % (42.2-75.2); LYMPH # 0.9 (1.2-3.4); LYMPH % 10.4 % (20.0-51.0); MEAN CELL VOLUME 87 fl (80.0-100.0); MEAN CORPUSCULAR HGB CONC 33 g/dl (33.0-37.0); MEAN PLATELET VOLUME 9.4 fl (7.4-10.4); MONO # 0.9 (0.1-0.6); MONO % 10.2 % (1.7-9.3); PLATELET COUNT 219 K/mm3 (130-400); RED BLOOD COUNT 3.42 M/mm3 (4.10-5.30); REDCELL DISTRIBUTION WIDTH-CV 12.6 % (11.5-14.5)
[2018-12-19 07:02] LABS: HEMATOCRIT 29.9 % (37.0-47.0); HEMOGLOBIN 9.8 g/dl (12.5-16.0); MEAN CORPUSCULAR HEMOGLOBIN 29 pg (27.0-31.0)
--- NOTE | 2018-12-19 07:08 | NUR ---
Report given to VARSHA Washburn
[2018-12-19 07:13] LABS: CALCIUM 7.9 mg/dL (8.4-10.2); CREATININE, serum 0.65 (0.52-1.25)
[2018-12-19 09:22] LABS: PRE ALBUMIN 5.1 mg/dL (17.6-36.0)
[2018-12-19 10:53] LABS: INR 0.9 (0.8-3.0); PROTHROMBIN TIME 10.5 SECONDS (9.7-12.8)
--- NOTE | 2018-12-19 11:37 | NUR ---
Initial visit attempt; Patient resting throughout morning. Clinical Data Analyst left card letting her know of the availability of spiritual care at our hospital.
--- NOTE | 2018-12-19 15:07 | NUR ---
Pt transferred to Express Room 16 for DARON.
--- NOTE | 2018-12-19 16:08 | NUR ---
Pt is back in room after DARON. Alert and oriented. Vital signs within normal limits. Continue to monitor.
--- NOTE | 2018-12-19 16:53 | NUR ---
patient continues to do well s/p DARON, she is alert/oriented, vital signs / still tachy/ still htn/ still running low grade fever, she is wanting to eat some food now and feeling a little better, DARON was negative
--- NOTE | 2018-12-19 20:50 | NUR ---
Pt was up approx, 30min ago and was in the shower without assist. Had just had an incont BM in bed. Back to bed with assist. Complete bed change. PICC line still intact and was not wet. Tele still on. VS monitored. Temp 99.9 and BP still elevated. Rolling around in bed moaning and crying, with no tears. Calls family and they in return call the nurses desk and state that the patient said she was not going to make it much longer. Explained to family that her temp was below 100 and that she got into the shower when she was told to wait for someone to help. C/o low abdominal pain 12/25. Dilaudid .5 given and Xanax .25 given for anxiety. As soon as Dilaudid was finished given slow IV push pt became silent resting quietly. Call light in reach. Bed alarm on.
[2018-12-20 03:20] VITALS: BP 149/89; PULSE 100; TEMP 98.3
[2018-12-20 06:25] LABS: BASO % 0.3 % (0.0-2.0); EOS % 0.1 % (0-4.0); GRAN # 5.3 (1.4-6.5); LYMPH # 1.2 (1.2-3.4); LYMPH % 15.2 % (20.0-51.0); MEAN CELL VOLUME 88 fl (80.0-100.0); MEAN CORPUSCULAR HGB CONC 33 g/dl (33.0-37.0); MONO # 1.1 (0.1-0.6); PLATELET COUNT 217 K/mm3 (130-400); RED BLOOD COUNT 3.23 M/mm3 (4.10-5.30); REDCELL DISTRIBUTION WIDTH-CV 12.5 % (11.5-14.5)
[2018-12-20 06:26] LABS: CALCIUM 7.8 mg/dL (8.4-10.2); CREATININE, serum 0.58 (0.52-1.25); POTASSIUM 3.5 mmol/L (3.4-5.0)
[2018-12-20 06:34] LABS: HEMATOCRIT 28.5 % (37.0-47.0); HEMOGLOBIN 9.3 g/dl (12.5-16.0); MEAN CORPUSCULAR HEMOGLOBIN 29 pg (27.0-31.0)
--- NOTE | 2018-12-20 08:08 | NUR ---
Vancomycin Follow-up Pharmacy Note Current regimen: VANCOMYCIN 750MG Q8H Vancomycin trough: 14.4, PT WITH MRSA BACTEREMIA Adjustments: INCREASE TO VANCOMYCIN 1G Q8H. TROUGH 12/22/18 AT 0800.
[2018-12-20 08:18] VITALS: BP 118/74; PULSE 99; TEMP 98.9
[2018-12-20 13:05] VITALS: BP 152/66; PULSE 95; TEMP 98.7
--- NOTE | 2018-12-20 15:13 | NUR ---
Pt resting in bed with spouse at bedside. Pt remains on contact precautions. Pt pain managed with PRN Dilaudid. Pt has RLE wound that is covered with foam dressing. No drainage noted. Pt alert and oriented this shift. Pt assisted to bedside commode x1 d/t unsteady gait. Unable to obtain cdiff and GI panel at this time. Pt had urine in specimen around lunch time and pt was incontinent in bed early this am per aide. Pt has call light in reach and PICC remains patnet and no infiltration or redness noted.
[2018-12-20 17:33] VITALS: BP 157/89; PULSE 95; TEMP 98.4
[2018-12-20 19:28] VITALS: BP 150/81; PULSE 101; TEMP 99.2
--- NOTE | 2018-12-20 21:00 | NUR ---
Initial shift assessment done- sitting on edge of bed,,family at bedside- pt talking on phone very loudly, states she is is pain-needing her Dilaudid - Lab here to draw blood culture,
--- NOTE | 2018-12-20 21:10 | NUR ---
Called to patients room by laborer turkey farm, pt was sitting on side of bed for blood draw and "passed out"and fell back onto bed-- family was in room, patient initially was not answering questions but started waking up within a minute- vitals were stable, 173/85, 100,20- once awake was calling out for her mother who is ,family helping orient her--states she does get confused at times when in pain --will give the Dilaudid now
--- NOTE | 2018-12-20 22:00 | NUR ---
Resting in bed- requesting some apple juice, states shes feeling better- the Dilaudid was effective for pain -no confusion noted,,, family states she dreams alot and talks loudly in her sleep--- pt states she needs her meds for her "mind" - none are listed on med rec--when asked family, they state she hasnt taken them for awhile and do not know the name of the med
[2018-12-20 23:32] VITALS: BP 139/77; PULSE 97; TEMP 99.1
[2018-12-21] VITALS (7 sets, daily range): BP systolic 125–185; BP diastolic 66–83; PULSE 86–96; TEMP 97.8–98.7
--- NOTE | 2018-12-21 05:45 | NUR ---
Has slept for a few hours during the night- meducated with Dilaudid for abd pain every 3-4 hours as requested, VSS
--- NOTE | 2018-12-21 08:42 | NUR ---
Pt resting in bed with eyes closed. Pt easily arousable to touch. Pt reports pain 8/10. Pt states pain is in RLQ. Pt RLE blister on top of foot covered with Mepilex with no drainage seen. Pt BS checked and breakfast ordered. Pt's spouse at bedside sleeping also. Pt PICC patent and no redness or infiltration noted and arm circumf. checked. Pt remains on contact precautions for MRSA in the blood. Pt has call light in reach and denies needs other than requesting PRN pain medications.
--- NOTE | 2018-12-21 10:10 | NUR ---
Pt resting in bed this am. Pt rates pain 8/10 and given PRN Dilaudid as ordered for pain management. Pt seen by Hospitalist this am and plan to switch over to oral pain control today and pt agrees with plan for pain management. Pt RLE blister dressing changed. No drainage on foam pad noted. Pt tolerated with minimal pain. Wound bed pink and new epithelial noted. Pt had taken cap off of red port of PICC line d/t pt states it was iching. PICC end cleansed and new cap applied. Pt eating breakfast now. Pt BP rechecked this am and WNL. Pt has call light in reach and remains on contact precautions.
--- NOTE | 2018-12-21 11:14 | NUR ---
Pt assisted up to shower without incident. Pt was a little more steady on her feet this am. Pt seen by PT as well this am. Pt bed linens changed and pt now resting in bed with call light in reach and bed alarm on.
--- NOTE | 2018-12-21 18:38 | NUR ---
Pt had one episode of emesis this afternoon. Pt had been given oral [place] as scheduled for pain control and it did not help or even touch the pain per pt. Pt declined nausea medication and was crying and stressed out about her situation and just wanted to go home. Pt education given on diagnosis and pain control and comfort given. Pt also stated she wanted to get better not just keep taking pain medication to mask the pain. Pt frustrated about home situation and spouse. Pt has pysch consult when available ordered. Pt decided that she would take some pain medication for pain. Pt given PRN Dilaudid and pt calmed shortly and agreed to order supper. Pt has call light in reach and denies needs at this time.
--- NOTE | 2018-12-21 19:30 | NUR ---
Pt report given to Merlene MADDOX.
[2018-12-22 03:52] VITALS: BP 195/88; PULSE 84; TEMP 98.9
--- NOTE | 2018-12-22 04:58 | NUR ---
UPDATED BY VARSHA LOREDO THAT PT IS REFUSING TELE AT THIS TIME. UNABLE TO PRINT STRIPS FOR 0500.
--- NOTE | 2018-12-22 06:57 | NUR ---
Assessment completed, patient is drowsy but arousable to name/ voice, reporting abd pain 8-10, she had pulled her IV out this morning and currently has no IV access/ I called and got order for PO pain meds but the patient has refused any PO pain meds, also got an order from to place a PICC line, AIVS notified, she is scheduled for a DARON today/ again she has no IV access and so it will be this afternoon before we can do DARON, she continues to run tachycaric up to 130 / it is a sinus rythm on tele and hospitalist aware, she also continues to run fevers up to 102-103, WBC is WNL, BC + for MRSA, ID on the case for abx therapy, present in room, she is NPO, will continue to monitor
[2018-12-22 07:17] VITALS: BP 158/95; PULSE 95; TEMP 98.1
[2018-12-22 08:22] LABS: BASO % 0.2 % (0.0-2.0); EOS % 0.2 % (0-4.0); GRAN # 4.3 (1.4-6.5); GRAN % 73.1 % (42.2-75.2); LYMPH % 16.2 % (20.0-51.0); MEAN CELL VOLUME 87 fl (80.0-100.0); MEAN CORPUSCULAR HGB CONC 33 g/dl (33.0-37.0); MEAN PLATELET VOLUME 9.6 fl (7.4-10.4); MONO # 0.6 (0.1-0.6); PLATELET COUNT 255 K/mm3 (130-400); RED BLOOD COUNT 3.42 M/mm3 (4.10-5.30); REDCELL DISTRIBUTION WIDTH-CV 12.6 % (11.5-14.5)
[2018-12-22 08:29] LABS: HEMATOCRIT 29.9 % (37.0-47.0); HEMOGLOBIN 9.8 g/dl (12.5-16.0); MEAN CORPUSCULAR HEMOGLOBIN 29 pg (27.0-31.0)
[2018-12-22 08:32] LABS: CALCIUM 8.4 mg/dL (8.4-10.2); CREATININE, serum 0.41 (0.52-1.25); POTASSIUM 3.7 mmol/L (3.4-5.0)
--- NOTE | 2018-12-22 09:32 | NUR ---
Pt has been non compliant this shift. Given Munger 7.5 x1 early this shift after she had been given Dilaudid at the end of day shift. Slept until around 3 this AM and then was in room naked and states her gown is wet. BSS was 78 so we offered pt some juice but she refused. Took off the tele and refusing to put back on. Call and states she is in a lot of pain, so I brought her a Munger 7.5 x1 and pt refuses to take. Given Xanax .25 x1 for her anxiety. Continues to holler and scream that she is in pain. Route Driver took Munger tab in to patient and she did take it at this time. Resting in bed. Gown back on. Covers up with covers. Call light within reach. Telemetry notified of pt refusing to put tele on.
--- NOTE | 2018-12-22 10:37 | NUR ---
Assessment completed, drowsy/ arousable, vital signs stable, when she is awake she continue to report severe abd pain/ she is sleeping at this time and had received [place] earlier this morning, heart RRR/distal pulses are palpable, Vanc trough drawn/ reviewed with pharmacy and now Vanco is infusing, she is refusing to wear her telemerty and i have notified hospitalist
[2018-12-22 11:52] VITALS: BP 159/93; PULSE 91; TEMP 97.5
--- NOTE | 2018-12-22 15:31 | NUR ---
engineering production worker met with patient and her daughter, Liz #[phone] to discuss discharge plans. Patient plans to return home to daughter's home upon discharge. Patient states she "went crazy" last night as the drugs have left her system and she is feeling depression. Patient states she apologized for her behavior towards staff and is aware that she needs to see staff at [facility] and resume her psych medications, that she hasn't been on for years. Worker presented the IM and patient wishes to review the document.
[2018-12-22 16:51] VITALS: BP 202/103; PULSE 91; TEMP 98.5
[2018-12-22 19:23] VITALS: BP 154/68; PULSE 91; TEMP 98.4
[2018-12-22 23:40] VITALS: BP 138/66; PULSE 98
[2018-12-23 03:01] VITALS: BP 152/85; PULSE 100; TEMP 98.9
[2018-12-23 06:10] LABS: BASO % 0.3 % (0.0-2.0); EOS % 0.4 % (0-4.0); GRAN # 4.6 (1.4-6.5); GRAN % 67.6 % (42.2-75.2); LYMPH # 1.2 (1.2-3.4); LYMPH % 17.6 % (20.0-51.0); MEAN CELL VOLUME 87 fl (80.0-100.0); MEAN CORPUSCULAR HGB CONC 32 g/dl (33.0-37.0); MONO # 0.9 (0.1-0.6); MONO % 13.8 % (1.7-9.3); PLATELET COUNT 303 K/mm3 (130-400); RED BLOOD COUNT 3.43 M/mm3 (4.10-5.30); REDCELL DISTRIBUTION WIDTH-CV 12.5 % (11.5-14.5)
[2018-12-23 06:13] LABS: HEMATOCRIT 29.9 % (37.0-47.0); HEMOGLOBIN 9.6 g/dl (12.5-16.0); MEAN CORPUSCULAR HEMOGLOBIN 28 pg (27.0-31.0)
[2018-12-23 06:28] LABS: CALCIUM 8.4 mg/dL (8.4-10.2); CREATININE, serum 0.76 (0.52-1.25); POTASSIUM 3.3 mmol/L (3.4-5.0)
[2018-12-23 07:55] VITALS: BP 186/87; PULSE 91; TEMP 98.9
--- NOTE | 2018-12-23 08:15 | NUR ---
Patient in bed resting. Alert and oriented x 3. Shift assessment complete. Family at bedside. Patient states abdominal pain 09/24, medications given per orders. Administered apresoline due to high SBP. Medications given with sips of water due to NPO for CT. Ulcer to right foot noted. Denies further needs at this time.
--- NOTE | 2018-12-23 08:20 | NUR ---
Notified hospitalist that patients blood sugar is 61 and patient is NPO at this time. Will continue to monitor. No new orders.
--- NOTE | 2018-12-23 08:30 | NUR ---
Patient down for CT
--- NOTE | 2018-12-23 09:20 | NUR ---
Patients BS at 64, offered patient apple juice. Will continue to monitor.
--- NOTE | 2018-12-23 09:40 | NUR ---
Patient complaining of nausea at this time. Zofran administered per orders.
--- NOTE | 2018-12-23 10:00 | NUR ---
Patient states nausea is better at this time. States pain is tolerable as well.
[2018-12-23 11:23] VITALS: BP 194/65; PULSE 103; TEMP 98.5
--- NOTE | 2018-12-23 11:47 | NUR ---
Patient requesting pain medication after working with PT. States pain 09/24, medicaiton given per orders. SBP 190-given prn dose of apresoline.
[2018-12-23 12:54] VITALS: BP 180/90
[2018-12-23 13:27] VITALS: BP 165/106
[2018-12-23] MEDS ORDERED: DALVANCE IV (14:32)
[2018-12-23] MEDS ORDERED: ZESTRIL 5MG5 MG PO (14:32)
[2018-12-23] MEDS ORDERED: NOVOLOG 100U100 U/M1 SQ (14:42)
[2018-12-23] MEDS ORDERED: LEVEMIR SQ (14:43)
[2018-12-23] MEDS ORDERED: NORCO 325 MG-7.1 TAB PO (14:43)
[2018-12-23] MEDS ORDERED: TYLENOL 325MG325 MG PO (14:44)
[2018-12-23 15:06] VITALS: BP 152/77; PULSE 98; TEMP 98.8
--- NOTE | 2018-12-23 15:37 | NUR ---
ID is recommending one dose of IV [place]. The patient is in agreeance to receive the IV antibiotic in the Express Unit. NANO notified md physician dermatologist, Ilana, for prior-auth. No prior-auth needed. NANO contacted Mary in the Express Unit and set the antibiotic up for tomorrow, 12/24, at 0900. NANO informed the patient and the community resource officer. The patient is to discharge back home today, 12/23. NANO presented and explained the IM form to the patient. The patient verbalized understanding, signed, and she was provided a copy. No additional needs at this time.
--- NOTE | 2018-12-23 15:50 | NUR ---
Ortho in to see patient.
--- NOTE | 2018-12-23 17:55 | NUR ---
Patient called out to nurses station states that she is "leaving now". Patient aware that she has approximately 20 minutes left on antibiotic, patient states that if staff does not disconnect her from IV she will pull out her own PICC line. Contacted Dr. Light and let him know that patient is not willing to finish out antibiotic. Gifty MADDOX discontinued PICC line. Discharge education provided to patient. All questions answered. Dressing to MARGARITO picc is CDI. Denies further needs at this time. Patient out by wheelchair with medical staff. Reinforced to patient that she needs to come for antibiotic treatment tomorrow.
== END 2018-12-23 18:00 | disposition home or self-care (01) | DRG 871 ==
LOC: COL.ER 23:57 → MEDICAL 12-18 06:36
PROVIDERS: Nurse Practitioner; Physician Assistant; ADMIT Family Medicine
PROC: 02HV33Z Insertion of Infusion Device into Superior Vena Cava, Percutaneous Approach (ICD-10-PCS; principal; 2018-12-19)
DX: A41.02 Sepsis due to Methicillin resistant Staphylococcus aureus (principal); J69.0 Pneumonitis due to inhalation of food and vomit; N12 Tubulo-interstitial nephritis, not specified as acute or chronic; K52.1 Toxic gastroenteritis and colitis; E46 Unspecified protein-calorie malnutrition; I50.20 Unspecified systolic (congestive) heart failure; E87.1 Hypo-osmolality and hyponatremia; Z68.1 Body mass index [BMI] 19.9 or less, adult; M48.07 Spinal stenosis, lumbosacral region; F31.9 Bipolar disorder, unspecified; I11.0 Hypertensive heart disease with heart failure; E11.40 Type 2 diabetes mellitus with diabetic neuropathy, unspecified; I25.2 Old myocardial infarction; F17.210 Nicotine dependence, cigarettes, uncomplicated; G89.29 Other chronic pain; I25.10 Atherosclerotic heart disease of native coronary artery without angina pectoris; S91.301A Unspecified open wound, right foot, initial encounter; F14.10 Cocaine abuse, uncomplicated; F15.10 Other stimulant abuse, uncomplicated; E11.65 Type 2 diabetes mellitus with hyperglycemia; D64.9 Anemia, unspecified; E87.6 Hypokalemia; Z85.3 Personal history of malignant neoplasm of breast; Z92.21 Personal history of antineoplastic chemotherapy; Z86.19 Personal history of other infectious and parasitic diseases; Z91.14 Patient's other noncompliance with medication regimen; Z79.4 Long term (current) use of insulin
CPT/HCPCS: 99222-AI; 99231-AI; 99232-AI; 99233-AI; 99239; A9585; C1751; J0696; J1170; J1650; J1815; J2405; J2543; J2704; J3010; J3370; J3480; J7030; J7050; Q9967

== ENCOUNTER 2019-01-12 21:29 | Inpatient (IN) | payer MEDICARE, MEDICAID ==
[~2019-01-12] VITALS: Ht 167.6 cm; Wt 52.2 kg
[~2019-01-12 21:29] MED LIST changes: +DALVANCE IV; +TYLENOL 325MG325 MG PO; +ZESTRIL 5MG5 MG PO
[2019-01-12 22:51] LABS: COLLECTION METHOD CLEAN CATCH
[2019-01-12 22:57] LABS: PH 6 (5-8); SQUAMOUS EPITHELIAL None Seen /hpf; URINE APPEARANCE Clear; URINE BACTERIA None Seen /hpf; URINE BILIRUBIN Negative (NEGATIVE); URINE BLOOD 2+ (NEGATIVE); URINE COLOR Yellow; URINE GLUCOSE 3+ (NEGATIVE); URINE KETONE Negative (NEGATIVE); URINE LEUKOCYTE ESTERASE Negative (NEGATIVE); URINE NITRATE Negative (NEGATIVE); URINE PROTEIN(semi-quant) 1+ (NEGATIVE); URINE UROBILINOGEN Negative (NEGATIVE)
[2019-01-12 22:58] LABS: BASO % 0.1 % (0.0-2.0); EOS % 0.3 % (0-4.0); GRAN % 67.9 % (42.2-75.2); HEMATOCRIT 31.3 % (37.0-47.0); HEMOGLOBIN 10.5 g/dl (12.5-16.0); LYMPH # 1.7 (1.2-3.4); LYMPH % 23.3 % (20.0-51.0); MEAN CELL VOLUME 86 fl (80.0-100.0); MEAN CORPUSCULAR HEMOGLOBIN 29 pg (27.0-31.0); MEAN CORPUSCULAR HGB CONC 34 g/dl (33.0-37.0); MONO # 0.6 (0.1-0.6); MONO % 8.1 % (1.7-9.3); PLATELET COUNT 408 K/mm3 (130-400); RED BLOOD COUNT 3.66 M/mm3 (4.10-5.30); REDCELL DISTRIBUTION WIDTH-CV 12.4 % (11.5-14.5)
[2019-01-12 23:00] LABS: ALANINE AMINOTRANSFERASE < 6 U/L (9-52); ALBUMIN 3.6 gm/dL (3.5-5.0); ALKALINE PHOSPHATASE 113 U/L (50-136); ANION GAP 14 mmol/L (7-16); AST,SGOT 37 U/L (15-37); BILIRUBIN,TOTAL 0.2 mg/dL (0.0-1.0); BLOOD UREA NITROGEN 19 mg/dL (7-17); C-REACTIVE PROTEIN 4.9 mg/dL (0.0-0.9); CALCIUM 8.7 mg/dL (8.4-10.2); CARBON DIOXIDE 33 mmol/L (22-30); CREATININE, serum 0.79 (0.52-1.25); SODIUM 132 mmol/L (137-145); TOTAL PROTEIN 9.1 gm/dL (6.4-8.2)
[2019-01-12 23:09] LABS: TRICYCLIC ANTIDEPRESS URINE NEGATIVE
[2019-01-12 23:12] LABS: CHLORIDE 85 mmol/L (98-107); GLUCOSE 469 mg/dL (74-106); POTASSIUM 2.4 mmol/L (3.4-5.0)
[2019-01-13] VITALS (187 sets, daily range): BP systolic 119–176; BP diastolic 63–107; PULSE 102–115; TEMP 97.8–98.5; O2SAT 87–100
[2019-01-13 00:26] LABS: MAGNESIUM 1.8 mg/dL (1.6-2.3); PHOSPHOROUS 1.5 mg/dL (2.5-4.5)
[2019-01-13 00:44] LABS: ACETAMINOPHEN < 10 ug/mL (10-30); ALCOHOL(ethanol),MEDICAL < 10 mg/dL; SALICYLATE 1.6 mg/dL
[2019-01-13 01:02] LABS: ARTERIAL BLD GAS O2 SATURATION 97.1 % (92-100); ARTERIAL BLD GAS TCO2 CT 32.8; ARTERIAL BLOOD GAS BASE EXCESS 8.9 (-2-2); ARTERIAL BLOOD GAS HCO3 31.6 meq/L (22-26); ARTERIAL BLOOD GAS PCO2 36.4 mmHg (35-45); ARTERIAL BLOOD GAS PO2 88.3 mmHg (80-100); ARTERIAL BLOOD GAS pH 7.56 (7.35-7.45)
[2019-01-13 02:28] LABS: ACETONE,SERUM NEGATIVE
[2019-01-13] MEDS ORDERED: LEVEMIR100 U/ML SQ (02:31)
[2019-01-13] MEDS ORDERED: NOVOLOG 100U100 U/M1 SQ (02:31)
[2019-01-13 02:34] LABS: TROPONIN-I < 0.012 ng/mL (0.000-0.035)
[2019-01-13 02:35] LABS: POTASSIUM 2.5 mmol/L (3.4-5.0)
--- NOTE | 2019-01-13 03:19 | NUR ---
Patient glucose currently 65, asymptomatic with decreased blood glucose. KENDALL Brown notified, changing IV fluid. *0446: Patient glucose currently 56, KENDALL Brown notified, increased IV fluid rate. *0605: Patient glucose at 49, 1/2 D50 amp given, KENDALL Brown notified.
[2019-01-13 06:15] LABS: PROTHROMBIN TIME 12.2 SECONDS (9.7-12.8)
--- NOTE | 2019-01-13 06:45 | NUR ---
Vancomycin Initial Dosing Pharmacy Note Ordering provider: Dickson Light MD Indication/duration: BACTEREMIA 7 DAYS Relevant comorbidities: recently hospitalized 12/18/18-12/23/18 for sepsis, MRSA bacteremia, staph UTI with possible pyelonephritis, and right foot wound with drained blister LABS: SCR 0.79/CRCL~52/TOX +METH/CANNABINOIDS Recommendation: Loading dose: 1GM X2 DOSES Maintenance dose: 750MG Q8H Trough goal: 15
--- NOTE | 2019-01-13 10:06 | NUR ---
BARRON veras attended clinical rounds with the team. PT/OT will be ordered. After rounds BARRON veras met with the patient and her friend Emil to discuss a discharge care plan. The patient lives in [place] with her daughter/DPOA-HC Liz Lynne . The patient has a cane and reports she sometimes requires assistance with ADLs. The patient receives medical care from [facility] and receives medications from [facility] with no difficulties. The patient does not have advanced directives in the EMR but was interested in completing a DPOA-HC form. BARRON veras and the patient's nurse witnessed. A copy was placed in the patient's chart and original and copies were provided for the patient. developmental services worker will continue to follow to ensure safe discharge.
[2019-01-13 14:35] LABS: PHOSPHOROUS 4.1 mg/dL (2.5-4.5); POTASSIUM 3.1 mmol/L (3.4-5.0)
--- NOTE | 2019-01-13 19:41 | NUR ---
Patient assessment completed and charted at this time, please see documentation for details. Patient resting in bed, denies any new issues. Stated "She feels so good waking up with the drugs out of my system, but it hurts." Will continue to monitor and assess.
[2019-01-14] VITALS (22 sets, daily range): BP systolic 140–152; BP diastolic 88–103; PULSE 116–125; TEMP 97.8–99.8; O2SAT 82–98
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
[2019-01-14 07:07] LABS: BASO % 0.2 % (0.0-2.0); EOS % 0.2 % (0-4.0); GRAN # 6.6 (1.4-6.5); GRAN % 72.7 % (42.2-75.2); LYMPH # 1.6 (1.2-3.4); LYMPH % 17.9 % (20.0-51.0); MEAN CELL VOLUME 85 fl (80.0-100.0); MEAN CORPUSCULAR HGB CONC 33 g/dl (33.0-37.0); MONO # 0.8 (0.1-0.6); MONO % 8.5 % (1.7-9.3); PLATELET COUNT 418 K/mm3 (130-400); RED BLOOD COUNT 2.93 M/mm3 (4.10-5.30); REDCELL DISTRIBUTION WIDTH-CV 12.7 % (11.5-14.5)
[2019-01-14 07:12] LABS: HEMOGLOBIN 8.2 g/dl (12.5-16.0); MEAN CORPUSCULAR HEMOGLOBIN 28 pg (27.0-31.0)
[2019-01-14 07:37] LABS: ALBUMIN 2.9 gm/dL (3.5-5.0); BILIRUBIN,TOTAL 0.2 mg/dL (0.0-1.0); CALCIUM 7.4 mg/dL (8.4-10.2); CREATININE, serum 0.69 (0.52-1.25); MAGNESIUM 1.4 mg/dL (1.6-2.3); PHOSPHOROUS 2.3 mg/dL (2.5-4.5); POTASSIUM 3.9 mmol/L (3.4-5.0); TOTAL PROTEIN 7.3 gm/dL (6.4-8.2)
--- NOTE | 2019-01-14 10:31 | NUR ---
BARRON student attended clinical rounds with the team. Hospitalist recommending a long-term care hospital for the patient. After rounds INTERNET SOURCER student met with the patient and provided a list of LTAC from Medicare.gov and presented the patient choice form. The patient's first and only choice is [facility] in [facility]. A copy of the form was provided to the patient and original was placed in the patient's chart. INTERNET SOURCER student faxed referral to Jacob at [facility]. business services analyst will continue to follow.
--- NOTE | 2019-01-14 17:21 | NUR ---
Report called to Tigist MADDOX
--- NOTE | 2019-01-14 17:50 | NUR ---
PATIENT ARRIVED TO ROOM 341 VIA WHEELCHAIR FROM ICU. PATIENT SETTELED INTO ROOM. CALL LIGHT WITHIN REACH.
--- NOTE | 2019-01-14 19:12 | NUR ---
REPORT GIVEN TO VARSHA DURHAM.
[2019-01-15] VITALS (7 sets, daily range): BP systolic 122–144; BP diastolic 72–88; PULSE 107–121; TEMP 98.7–100.6
--- NOTE | 2019-01-15 01:34 | NUR ---
PATIENT DOING OKAY THROUGHOUT THE NIGHT. PATIENT IS VERBALLY IN PAIN AND DISPLAYING INCREASED CUES OF PAIN. GIVEN SCHEDULED OXYCOTIN AND SOME TYLENOL FOR A HEADACHE. PATIENT TOOK A BATH WITH ASSISTANCE OF 2 CNAS AND NURSE. LOTION WAS APPLIED. NEW TELE LEAD STICKERS APPLIED. LABS DRAWN OFF OF PICC LINE IN RUE. NS AND VANC RUNNING. PATIENT WAS SLIGHTLY CONFUSED AND CONVERSATION IS CONFUSED AND CLOUDY. PATIENTS FAMILY MEMBER IS AT BEDSIDE. PATIENT SEEMS SIGNIFICANTLY MORE COMFORTABLE AFTER THE BATH. NO FURTHER NEEDS AT THIS TIME. WILL CONTINUE TO MONITOR.
[2019-01-15 07:28] LABS: BASO % 0.1 % (0.0-2.0); EOS % 0.2 % (0-4.0); GRAN % 71.2 % (42.2-75.2); LYMPH # 1.6 (1.2-3.4); LYMPH % 18.3 % (20.0-51.0); MEAN CELL VOLUME 86 fl (80.0-100.0); MEAN CORPUSCULAR HGB CONC 32 g/dl (33.0-37.0); MEAN PLATELET VOLUME 9.1 fl (7.4-10.4); MONO # 0.8 (0.1-0.6); MONO % 9.7 % (1.7-9.3); PLATELET COUNT 368 K/mm3 (130-400); RED BLOOD COUNT 2.66 M/mm3 (4.10-5.30); REDCELL DISTRIBUTION WIDTH-CV 12.8 % (11.5-14.5)
[2019-01-15 07:30] LABS: HEMATOCRIT 22.9 % (37.0-47.0); HEMOGLOBIN 7.4 g/dl (12.5-16.0); MEAN CORPUSCULAR HEMOGLOBIN 28 pg (27.0-31.0)
[2019-01-15 07:41] LABS: ALBUMIN 2.5 gm/dL (3.5-5.0); BILIRUBIN,TOTAL 0.2 mg/dL (0.0-1.0); CALCIUM 7.5 mg/dL (8.4-10.2); CREATININE, serum 0.61 (0.52-1.25); MAGNESIUM 1.8 mg/dL (1.6-2.3); PHOSPHOROUS 2.8 mg/dL (2.5-4.5); POTASSIUM 3.1 mmol/L (3.4-5.0); TOTAL PROTEIN 6.6 gm/dL (6.4-8.2)
--- NOTE | 2019-01-15 11:00 | NUR ---
Patient has been sleeping most the morning. She stated she is having spasms in her back and sometimes it is worse than others. No complaints of nausea. Her is at bedside. This morning she had a large soft formed bowel movement on the floor before getting to the commode. She attempted to clean it up herself so was not able to get the stool sample. No other changes at this time. Call light within reach.
--- NOTE | 2019-01-15 16:41 | NUR ---
Abstracter was notified that [facility] was able to accept the referral and could take patient tomorrow. SW notified patient and friend, Emil at bedside. SW left voicemail message for patient's daughter, Liz. SW faxed updates to [facility]. SW to continue to follow.
--- NOTE | 2019-01-15 18:30 | NUR ---
Patient has been restless tonight. She stated her abdomen is hurting but she does not want pain medications for it. She deines nausea. We got a k-pad for her. Her is going home for the evening. No other changes a this time. Call light within reach.
--- NOTE | 2019-01-15 21:16 | NUR ---
Pt resting in bed upon entry. This nurse went into patients room at 2019 and noticed that IV vanc was not infusing, according to eMAR, this was hung around 1700, should have been completed. This nurse started IV vanc to infuse over 1 hour and 20 minutes. Now off schedule
--- NOTE | 2019-01-15 21:18 | NUR ---
Pt resting in bed, PM meds given with PRN flexeril given. Pt denies pain. States she is comfortable and feels the best she has had in 3 years. Call light within reach, will continue to monitor
[2019-01-16 04:00] VITALS: BP 118/67; PULSE 111; TEMP 98.7
--- NOTE | 2019-01-16 04:34 | NUR ---
Vanc running per q 8 hr protocol
--- NOTE | 2019-01-16 05:27 | NUR ---
Pt has done well during this shift. Has slept most of shift. Has not had BM so still have not gotten stool sample. Vanc running, tolerating ok. Call light within reach, will continue to monitor
[2019-01-16 06:36] LABS: BASO % 0.3 % (0.0-2.0); EOS % 0.4 % (0-4.0); GRAN # 5.5 (1.4-6.5); GRAN % 69.2 % (42.2-75.2); LYMPH # 1.6 (1.2-3.4); LYMPH % 19.8 % (20.0-51.0); MEAN CELL VOLUME 86 fl (80.0-100.0); MEAN CORPUSCULAR HGB CONC 33 g/dl (33.0-37.0); MEAN PLATELET VOLUME 9.8 fl (7.4-10.4); MONO # 0.8 (0.1-0.6); MONO % 9.9 % (1.7-9.3); PLATELET COUNT 372 K/mm3 (130-400); RED BLOOD COUNT 2.49 M/mm3 (4.10-5.30); REDCELL DISTRIBUTION WIDTH-CV 12.8 % (11.5-14.5)
[2019-01-16 07:21] LABS: HEMATOCRIT 21.5 % (37.0-47.0); HEMOGLOBIN 7.1 g/dl (12.5-16.0); MEAN CORPUSCULAR HEMOGLOBIN 29 pg (27.0-31.0)
[2019-01-16 07:33] VITALS: BP 139/83; PULSE 108; TEMP 98.5
[2019-01-16 07:37] LABS: ALBUMIN 2.4 gm/dL (3.5-5.0); BILIRUBIN,TOTAL 0.2 mg/dL (0.0-1.0); CALCIUM 7.7 mg/dL (8.4-10.2); CREATININE, serum 0.65 (0.52-1.25); POTASSIUM 3.5 mmol/L (3.4-5.0); TOTAL PROTEIN 6.4 gm/dL (6.4-8.2)
--- NOTE | 2019-01-16 09:30 | NUR ---
Patient is aware she is discharging to [facility] today. Her family is also aware. Patient has been sleeping this morning and is upset that she is being woken up. Patient has a student nurse today who is helping with her cares. Replacing postassium today. No other changes at this time. Call light within reach.
[2019-01-16 11:54] VITALS: BP 139/83; PULSE 108; TEMP 98.5
[2019-01-16 12:12] VITALS: BP 145/88; PULSE 112; TEMP 99.2
--- NOTE | 2019-01-16 13:30 | NUR ---
Patient has been discharged to [facility] via ambulance. Report called. Info packet sent about patient. All belongings packed up and sent with patient. Patient transferred EMS.
--- NOTE | 2019-01-16 14:50 | NUR ---
Mold Carrier faxed discharge orders to [facility] and made contact with Jacob to confirm they were received. NANO contacted [facility] to establish patient transportation to [facility] in [place] upon discharge. NANO presented required documentation to DAYDAY Schmid for signature then provided the forms to VARSHA Murphy. EMS is scheduled to arrive at 1:00pm. No additional concerns at this time.
== END 2019-01-16 13:20 | disposition short-term general hospital (02) | DRG 871 ==
LOC: COL.ER 21:29 → ICU 01-13 01:02 → SURG 01-14 17:50
PROVIDERS: Emergency Medicine; Nurse Practitioner Family; ADMIT Internal Medicine
PROC: 02HV33Z Insertion of Infusion Device into Superior Vena Cava, Percutaneous Approach (ICD-10-PCS; principal; 2019-01-13)
DX: A41.9 Sepsis, unspecified organism (principal); E43 Unspecified severe protein-calorie malnutrition; I50.32 Chronic diastolic (congestive) heart failure; E87.1 Hypo-osmolality and hyponatremia; E87.2 Acidosis; Z68.1 Body mass index [BMI] 19.9 or less, adult; Z66 Do not resuscitate; M54.5 Low back pain; G89.29 Other chronic pain; F31.9 Bipolar disorder, unspecified; E83.39 Other disorders of phosphorus metabolism; I11.0 Hypertensive heart disease with heart failure; M48.07 Spinal stenosis, lumbosacral region; B71.9 Cestode infection, unspecified; R19.7 Diarrhea, unspecified; M47.897 Other spondylosis, lumbosacral region; E11.65 Type 2 diabetes mellitus with hyperglycemia; E11.649 Type 2 diabetes mellitus with hypoglycemia without coma; K59.00 Constipation, unspecified; R29.6 Repeated falls; E11.9 Type 2 diabetes mellitus without complications; D64.9 Anemia, unspecified; B95.62 Methicillin resistant Staphylococcus aureus infection as the cause of diseases classified elsewhere; E87.6 Hypokalemia; Z91.14 Patient's other noncompliance with medication regimen; Z85.3 Personal history of malignant neoplasm of breast; Z90.10 Acquired absence of unspecified breast and nipple; Z92.21 Personal history of antineoplastic chemotherapy; Z90.49 Acquired absence of other specified parts of digestive tract; Z98.51 Tubal ligation status; Z91.81 History of falling
CPT/HCPCS: 99223-AI; 99232-AI; 99233-AI; 99239; A4216; C1751; J0360; J0696; J1170; J1650; J1815; J2360; J2405; J3010; J3370; J3475; J3480; J7030; J7040; J7042; J7050

== ENCOUNTER 2019-06-25 12:40 | Inpatient (IN) | payer MEDICARE, MEDICAID ==
[2019-06-25] VITALS (96 sets, daily range): BP systolic 159–162; BP diastolic 98–102; PULSE 110; TEMP 98.2–98.6; O2SAT 85–100
[~2019-06-25] VITALS: Ht 167.6 cm; Wt 43.2 kg
[~2019-06-25 12:40] MED LIST changes: +COLACE 100100 MG/CAP PO; +DESYREL 100MG100 MG PO; +LIORESAL 1010 MG/TAB PO; +LIORESAL20 MG PO; +NITROSTAT0.4 MG/TAB SL; +PEPCID 20MG TAB20 MG PO; +REMERON30 MG PO; +XTAMPZA ER9 MG PO; +ZYPREXA2.5 MG PO
[2019-06-25 13:07] LABS: COLLECTION METHOD CATHETER
[2019-06-25 13:14] LABS: BASO % 0.3 % (0.0-2.0); GRAN # 5.7 (1.4-6.5); GRAN % 76.8 % (42.2-75.2); LYMPH # 1.2 (1.2-3.4); LYMPH % 15.6 % (20.0-51.0); MEAN CELL VOLUME 88 fl (80.0-100.0); MEAN CORPUSCULAR HGB CONC 32 g/dl (33.0-37.0); MEAN PLATELET VOLUME 8.9 fl (7.4-10.4); MONO # 0.5 (0.1-0.6); PLATELET COUNT 584 K/mm3 (130-400); RED BLOOD COUNT 3.29 M/mm3 (4.10-5.30); REDCELL DISTRIBUTION WIDTH-CV 17.2 % (11.5-14.5)
[2019-06-25 13:17] LABS: HEMATOCRIT 28.8 % (37.0-47.0); HEMOGLOBIN 9.1 g/dl (12.5-16.0); MEAN CORPUSCULAR HEMOGLOBIN 28 pg (27.0-31.0)
[2019-06-25 13:21] LABS: ARTERIAL BLD GAS O2 SATURATION 97.5 % (92-100); ARTERIAL BLD GAS TCO2 CT 32.5; ARTERIAL BLOOD GAS BASE EXCESS 7.9 (-2-2); ARTERIAL BLOOD GAS HCO3 31.3 meq/L (22-26); ARTERIAL BLOOD GAS PO2 98.3 mmHg (80-100); ARTERIAL BLOOD GAS pH 7.52 (7.35-7.45)
[2019-06-25 13:24] LABS: CREATINE KINASE 57 U/L (30-135)
[2019-06-25 13:25] LABS: MUCOUS Present /lpf; PH 7 (5-8); SQUAMOUS EPITHELIAL 0-2 /hpf; URINE APPEARANCE Cloudy; URINE BACTERIA Many /hpf; URINE BILIRUBIN Negative (NEGATIVE); URINE BLOOD 1+ (NEGATIVE); URINE COLOR Yellow; URINE GLUCOSE Negative (NEGATIVE); URINE KETONE Negative (NEGATIVE); URINE LEUKOCYTE ESTERASE 2+ (NEGATIVE); URINE NITRATE Negative (NEGATIVE); URINE PROTEIN(semi-quant) 2+ (NEGATIVE); URINE UROBILINOGEN Negative (NEGATIVE)
[2019-06-25 13:25] LABS: ACETONE,SERUM NEGATIVE
[2019-06-25 13:26] LABS: ALANINE AMINOTRANSFERASE 12 U/L (4-34); ALBUMIN 3.3 gm/dL (3.5-5.0); ALKALINE PHOSPHATASE 116 U/L (50-136); ANION GAP 5 mmol/L (7-16); AST,SGOT 28 U/L (15-37); BILIRUBIN,TOTAL 0.3 mg/dL (0.0-1.0); BLOOD UREA NITROGEN 15 mg/dL (7-17); CALCIUM 9.1 mg/dL (8.4-10.2); CARBON DIOXIDE 36 mmol/L (22-30); CHLORIDE 98 mmol/L (98-107); CREATININE, serum 0.41 (0.52-1.25); GLUCOSE 80 mg/dL (74-106); MAGNESIUM 1.5 mg/dL (1.6-2.3); SODIUM 138 mmol/L (137-145); TOTAL PROTEIN 8.8 gm/dL (6.4-8.2)
[2019-06-25 13:27] LABS: TRICYCLIC ANTIDEPRESS URINE NEGATIVE
[2019-06-25 13:30] LABS: ALCOHOL(ethanol),MEDICAL < 10 mg/dL
[2019-06-25 13:38] LABS: TROPONIN-I < 0.012 ng/mL (0.000-0.035)
--- NOTE | 2019-06-25 16:00 | NUR ---
Recieved report from VARSHA Jimenez and patient arrived shortly. Patient was A & O x 4 and V/S were stable. Patient was orientated to the room, call light was placed within reach, and patient stated she had no further questions at this time. Patient is resting in bed but stated she has pain of 8/10. This nurse was not able to administer pain medications d/t waiting orders from provider. This nurse will continue to monitor patient throughout shift.
[2019-06-25 18:20] LABS: CALCIUM 8.6 mg/dL (8.4-10.2); CREATININE, serum 0.39 (0.52-1.25); POTASSIUM 3.4 mmol/L (3.4-5.0)
--- NOTE | 2019-06-25 20:05 | NUR ---
This nurse gave report to VARSHA Titus. Guest is resting in bed and call light is within reach.
[2019-06-26] VITALS: BP 131/82; PULSE 115; TEMP 98.1
[2019-06-26 04:00] VITALS: BP 140/79; PULSE 114; TEMP 98.3
[2019-06-26 05:34] LABS: BASO % 0.2 % (0.0-2.0); EOS % 0.2 % (0-4.0); GRAN # 11.1 (1.4-6.5); GRAN % 84.3 % (42.2-75.2); LYMPH # 1.4 (1.2-3.4); LYMPH % 10.6 % (20.0-51.0); MEAN CELL VOLUME 87 fl (80.0-100.0); MEAN CORPUSCULAR HGB CONC 32 g/dl (33.0-37.0); MONO # 0.6 (0.1-0.6); MONO % 4.4 % (1.7-9.3); RED BLOOD COUNT 2.97 M/mm3 (4.10-5.30); REDCELL DISTRIBUTION WIDTH-CV 17.2 % (11.5-14.5)
[2019-06-26 05:41] LABS: HEMATOCRIT 25.7 % (37.0-47.0); HEMOGLOBIN 8.2 g/dl (12.5-16.0); MEAN CORPUSCULAR HEMOGLOBIN 28 pg (27.0-31.0); PLATELET COUNT 484 K/mm3 (130-400)
[2019-06-26 05:46] LABS: CALCIUM 8.3 mg/dL (8.4-10.2); CREATININE, serum 0.6 (0.52-1.25); MAGNESIUM 1.7 mg/dL (1.6-2.3)
[2019-06-26 08:00] VITALS: BP 131/87; PULSE 111; TEMP 98.1
[2019-06-26] MEDS ORDERED: TYLENOL 325MG325 MG PO (13:54)
[2019-06-26] MEDS ORDERED: OMNICEF 300MG300 MG PO (13:56)
--- NOTE | 2019-06-26 14:25 | NUR ---
NANO attended clinical rounds. The patient is wanting to discharge. The patient reports that she has all her insulin and insulin supplies. The patient is to discharge today, 06/25. NANO then contacted the patient to discuss discharge plan. The patient lives in [place] with her significant other, Emil Brown, and her daughter, Liz Lnyne (ph#[phone]). She reports needing assistance with ADLs and has a walker and wheelchair. The patient reports that one of her long time friends is her personal chef. She reports that her personal chef is with her from 11-21, when her daughter is at work. She also receives home health services for penitentiary/PT/OT from [facility]. NANO contacted and confirmed services from Tigist at [facility]. The patient's PCP was Dr. Coni Dahl. She reports that she has not been set up with a new PCP, since Dr. Dahl has left. She was interested in getting set up with a new PCP and did not have a preference on who. NANO contacted [facility] and secured the patient an appointment with Dr. Kayden Botello on Saturday, 06/29, at 1100. The patient needs to arrive fifteen minutes early and bring her I.D. and insurance cards. NANO notified the patient of this and the patient's RN of the appointment. The patient receives her medications at [facility]. The patient's DPOA-HC is in EMR. Her DPOA-HC is her daughter, Liz. The patient plans to return home with her family and resume home health from [facility] upon discharge. Tigist at [facility] reports that they can resume services with the patient, but will not be able to start services back up until she has her appointment with Dr. Kayden Botello. NANO informed the patient of this. The patient verbalized understanding and reports that she will go. NANO contacted and updated the patient's daughter, Liz. Liz confirmed the above information and reports that she will also get the patient to her appointments. The patient is to discharge back home with her family today, 06/25, and home health services for penitentiary/PT/OT through [facility]. NANO contacted and faxed updates and discharge orders to Tigist at [facility]. Transport back home is to be provided by her person critical care nurse. No additional needs at this time.
--- NOTE | 2019-06-26 16:00 | NUR ---
Discharged to POV via with personal care attendent driving. Transfers to car with 1:1 assist. Discharge instructions reviewed with patient and voices understanding.
--- NOTE | 2019-06-29 07:57 | NUR ---
mastic worker spoke with patient's daughter and advised of patient's appointment with Dr Botello on 06/30/2019. Worker provided information on where Dr Botello's office is located.
== END 2019-06-26 16:00 | disposition home health service (06) | DRG 917 ==
LOC: COL.ER 12:40 → ICU 14:31 → IMCU 16:48
PROVIDERS: Emergency Medicine; Physician Assistant; ADMIT Hospitalist
DX: T43.621A Poisoning by amphetamines, accidental (unintentional), initial encounter (principal); E43 Unspecified severe protein-calorie malnutrition; N39.0 Urinary tract infection, site not specified; E87.3 Alkalosis; I50.32 Chronic diastolic (congestive) heart failure; E11.649 Type 2 diabetes mellitus with hypoglycemia without coma; Z79.4 Long term (current) use of insulin; R56.9 Unspecified convulsions; F15.90 Other stimulant use, unspecified, uncomplicated; T38.3X5A Adverse effect of insulin and oral hypoglycemic [antidiabetic] drugs, initial encounter; E87.6 Hypokalemia; E83.42 Hypomagnesemia; D64.9 Anemia, unspecified; D47.3 Essential (hemorrhagic) thrombocythemia; I11.0 Hypertensive heart disease with heart failure; M48.061 Spinal stenosis, lumbar region without neurogenic claudication; M51.26 Other intervertebral disc displacement, lumbar region; Z85.3 Personal history of malignant neoplasm of breast; B19.20 Unspecified viral hepatitis C without hepatic coma; F31.9 Bipolar disorder, unspecified; K21.9 Gastro-esophageal reflux disease without esophagitis; Z88.6 Allergy status to analgesic agent; Z88.1 Allergy status to other antibiotic agents; Z88.5 Allergy status to narcotic agent
CPT/HCPCS: 99223-AI; 99239; J0696; J1170; J1650; J2250; J3475; J3480; J7042

== ENCOUNTER 2019-09-20 21:05 | Inpatient (IN) | payer MEDICARE, MEDICAID ==
[~2019-09-20] VITALS: Ht 167.6 cm; Wt 55.2 kg
[2019-09-20 21:56] LABS: BASO % 0.2 % (0.0-2.0); EOS % 0.2 % (0-4.0); GRAN # 11.4 (1.4-6.5); GRAN % 86.8 % (42.2-75.2); HEMOGLOBIN 10.8 g/dl (12.5-16.0); LYMPH # 1.1 (1.2-3.4); LYMPH % 8.3 % (20.0-51.0); MEAN CELL VOLUME 81 fl (80.0-100.0); MEAN CORPUSCULAR HEMOGLOBIN 27 pg (27.0-31.0); MEAN CORPUSCULAR HGB CONC 33 g/dl (33.0-37.0); MEAN PLATELET VOLUME 10.4 fl (7.4-10.4); MONO # 0.5 (0.1-0.6); MONO % 3.6 % (1.7-9.3); PLATELET COUNT 242 K/mm3 (130-400); RED BLOOD COUNT 4.03 M/mm3 (4.10-5.30); REDCELL DISTRIBUTION WIDTH-CV 15.8 % (11.5-14.5)
[2019-09-20 22:00] LABS: HEMATOCRIT 32.5 % (37.0-47.0)
[2019-09-20 22:16] LABS: ALBUMIN 2.9 gm/dL (3.5-5.0); BILIRUBIN,TOTAL 1.8 mg/dL (0.0-1.0); CALCIUM 8.3 mg/dL (8.4-10.2); CREATININE, serum 0.76 (0.52-1.25); POTASSIUM 3.2 mmol/L (3.4-5.0)
[2019-09-20 22:22] LABS: C-REACTIVE PROTEIN 23.3 mg/dL (0.0-0.9)
[2019-09-20 22:44] LABS: COLLECTION METHOD CLEAN CATCH
[2019-09-20 22:57] LABS: MUCOUS Present /lpf; PH 5 (5-8); URINE APPEARANCE Turbid; URINE BACTERIA Many /hpf; URINE BILIRUBIN Negative (NEGATIVE); URINE BLOOD 2+ (NEGATIVE); URINE COLOR Amber; URINE GLUCOSE Negative (NEGATIVE); URINE KETONE Negative (NEGATIVE); URINE LEUKOCYTE ESTERASE 2+ (NEGATIVE); URINE NITRATE Positive (NEGATIVE); URINE PROTEIN(semi-quant) 2+ (NEGATIVE); URINE RBC 20-50 /hpf; URINE UROBILINOGEN >=4.0 mg/dL (NEGATIVE)
[2019-09-20 23:25] LABS: MAGNESIUM 1.4 mg/dL (1.6-2.3)
[2019-09-21] VITALS (7 sets, daily range): BP systolic 97–109; BP diastolic 66–77; PULSE 82–102; TEMP 97.5–98.5
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
--- NOTE | 2019-09-21 02:58 | NUR ---
CLARIFIED WITH DR RAMSAY, WHEN NEXT DOSES OF VANCOMYCIN & ZOSYN TO BE GIVEN. VANCOMYCIN & ZOSYN BOTH GIVEN IN ER DEPT RESPECTIVELY AT 2230 & 2136. INFORMED PATIENT STILL HAVING PAIN, PATIENT REPORTED FENTANYL HELPED BUT HAS TAKEN PERCOCET AND NORCO IN THE PAST. ORDERS GIVEN FOR NORCO FOR PAIN AND TO HAVE NEXT DOSE VANCO IN 12 HRS AND NEXT DOSE OF ZOSYN IN 8 HRS.
--- NOTE | 2019-09-21 03:30 | NUR ---
PATIENT RESTING WITH EYES CLOSED, DOES NOT OPEN EYES WHEN ROOM ENTERED BY STAFF. OBSERVED RESP NONLABORED AND EVEN WITH OBSERVED MOANING INTERMITTENTLY. LUE CONTINUES TO BE ELEVATED ON PILLOW WITH KPAD TO LUE FOR COMFORT. IVF INFUSING WITH NO PROBLEMS TO RUE CURRENTLY.
--- NOTE | 2019-09-21 07:30 | NUR ---
PATIENT RESTING IN BED DURING CHANGE OF SHIFT REPORT. IV FLUIDS INFUSING WITH NO PROBLEMS
[2019-09-21 08:09] LABS: TRICYCLIC ANTIDEPRESS URINE POSITIVE
[2019-09-21 08:11] LABS: ALBUMIN 2.6 gm/dL (3.5-5.0); BILIRUBIN,TOTAL 2.1 mg/dL (0.0-1.0); CALCIUM 7.7 mg/dL (8.4-10.2); CREATININE, serum 0.76 (0.52-1.25); MAGNESIUM 2.2 mg/dL (1.6-2.3); POTASSIUM 3.3 mmol/L (3.4-5.0); TOTAL PROTEIN 7.3 gm/dL (6.4-8.2)
[2019-09-21 08:29] LABS: HEMOGLOBIN 10.7 g/dl (12.5-16.0); MEAN CELL VOLUME 80 fl (80.0-100.0); MEAN CORPUSCULAR HEMOGLOBIN 27 pg (27.0-31.0); MEAN CORPUSCULAR HGB CONC 34 g/dl (33.0-37.0); MEAN PLATELET VOLUME 10.9 fl (7.4-10.4); PLATELET COUNT 208 K/mm3 (130-400); RED BLOOD COUNT 3.92 M/mm3 (4.10-5.30); REDCELL DISTRIBUTION WIDTH-CV 15.9 % (11.5-14.5)
[2019-09-21 08:31] LABS: HEMATOCRIT 31.2 % (37.0-47.0)
[2019-09-21 11:53] LABS: BAND 3 % (0-10); EOSINOPHIL 2 % (0-4); NEUTROPHILS 83 % (42.0-75.2)
[2019-09-21 11:56] LABS: TARGET CELLS 1+
[2019-09-21 11:57] LABS: MICROCYTOSIS 1+
[2019-09-21 11:59] LABS: LYMPHOCYTE 8 % (20.0-51.0)
[2019-09-21 12:00] LABS: PLATELET ESTIMATE NORMAL (NORMAL)
--- NOTE | 2019-09-21 14:26 | NUR ---
Attending Anesthesiologist met with patient to discuss discharge planning. Patient lives in [place] with her daughter, Liz (ph#[phone]). Patient states her significant other, Emil (ph#[phone]) lives in [place]. Patient has DP-HC located in chart which designates her daughre, Liz. Patient sees Dr. Botello for primary care [facility] Patient states either Liz or Emil sweet pickle maker her medications for her. Patient reports no difficulties paying for her medications. Patient states she plans to return home but also states she feels she needs to go somewhere to work with therapy before returning home. Patient states she needs to work on walking. SW reviewed post acute rehab options with patient, who would like referrals sent to [facility] as first preference and [facility] as second preference. SW spoke with Hospitalist about ordering PT/OT. SW faxed referrals and will continue to follow.
[2019-09-21 17:31] LABS: HIV 1/2 Antibodies Non-Reactive; HIV-1p24 Antigen Non-Reactive
--- NOTE | 2019-09-21 18:40 | NUR ---
Patient has done well throughout the day, antibiotics and fluids infusing per orders. Pain medications given per orders, patient complains of back pain. States swelling in [place] appears to have increased this afternoon. CT done this afternoon and notified US of orders. Patient has been sleeping on and off throughout the day, repositions independently. Has been up to restroom with x 1 assist. No further needs at this time. Reported off to production shift supervisor.
[2019-09-22 00:01] VITALS: BP 90/71; PULSE 91; TEMP 98.1
--- NOTE | 2019-09-22 03:22 | NUR ---
Patient has rested well throughout the night. States pain is 9/10 to left arm. PRN pain medication administered per orders. Left arm noted to be red, edematous, and warm to touch from just above the elbow down to her fingertips. Patient continues on Vancomycin and Zosyn for antibiotics. Glucose monitoring q4 hours as ordered. Blood glucose level within normal limits so far this shift. Patient continues on potassium replacement protocol and level will be drawn this morning. Continues on contact precautions for active MRSA infection. Will continue to monitor.
--- NOTE | 2019-09-22 03:44 | NUR ---
Results called to this nurse about positive blood culture. Culture collected on 09/19 grew aerobic gram + cocci in clusters. Dr. Light updated with this information and was told that the patient is currently on Vancomycin and Zosyn for antibiotics. Dr. Light stated, "yeah, that's fine." Will continue to monitor patient.
[2019-09-22 03:58] VITALS: BP 79/53; PULSE 85; TEMP 98
[2019-09-22 07:44] LABS: BASO % 0.3 % (0.0-2.0); EOS # 0.1 (0.0-0.7); GRAN # 7.2 (1.4-6.5); GRAN % 79.9 % (42.2-75.2); HEMATOCRIT 32.2 % (37.0-47.0); HEMOGLOBIN 10.7 g/dl (12.5-16.0); LYMPH # 1.2 (1.2-3.4); LYMPH % 12.8 % (20.0-51.0); MEAN CELL VOLUME 82 fl (80.0-100.0); MEAN CORPUSCULAR HEMOGLOBIN 27 pg (27.0-31.0); MEAN CORPUSCULAR HGB CONC 33 g/dl (33.0-37.0); MEAN PLATELET VOLUME 10.4 fl (7.4-10.4); MONO # 0.5 (0.1-0.6); MONO % 5.8 % (1.7-9.3); PLATELET COUNT 174 K/mm3 (130-400); RED BLOOD COUNT 3.95 M/mm3 (4.10-5.30)
[2019-09-22 07:52] LABS: CALCIUM 7.8 mg/dL (8.4-10.2)
--- NOTE | 2019-09-22 08:00 | NUR ---
Patient in bed resting. Alert and oriented x 3. Assessment complete. IV to Right AC without complications, fluids infusing per orders. Edema to RUE, patient states worse than previous day. No further needs at this time. Will continue to monitor.
[2019-09-22 08:20] LABS: INR 1.5 (0.8-3.0); PROTHROMBIN TIME 16.5 SECONDS (9.7-12.8)
[2019-09-22 08:57] VITALS: BP 97/70; PULSE 82
--- NOTE | 2019-09-22 09:10 | NUR ---
Pain medications given per orders for pain 10/25 to LUE and back.
[2019-09-22 11:55] VITALS: BP 100/67; PULSE 85; TEMP 97.5
--- NOTE | 2019-09-22 12:10 | NUR ---
Notified Dr. Eisenberg about consult.
--- NOTE | 2019-09-22 16:18 | NUR ---
Reinforcing Iron Worker Helper spoke with May at [facility] and Larry at [facility] who both declined referral. SW spoke with patient about sending additional referrals and patient is in agreement. Patient reports she went to [facility] previously and would be agreeable to going there again. SW collaborated with Hospitalist to order COVID swab. NANO faxed referrals to [facility] [place], [facility] [place], [facility], [facility] [place], [facility], [facility] [place], [facility] [place] NANO also faxed a referral to [facility]. NANO contacted patient's daughter, Liz and left a voicemail. NANO will continue to follow.
--- NOTE | 2019-09-22 17:05 | NUR ---
Patient requesting pain medications for LUE pain 10/25. Refusing [place] at this time states she would like something stronger. Educated patient on pain meds. Continues to refuse. Will continue to monitor.
[2019-09-22 17:40] VITALS: BP 111/71; PULSE 96; TEMP 97.6
[2019-09-22 19:22] VITALS: BP 153/97; PULSE 73; TEMP 98.3
--- NOTE | 2019-09-22 19:38 | NUR ---
Patient has done well throughout the day. IV accidentally pulled out per patient this afternoon. PICC team attempted to place IV x 4 attempt. Katherine notified and attempted x 2 before placing right EJ. Patient then requested pain medications for right arm pain "states her arm is hurting due to all iv start attempts". [place] offered for pain but patient refused at that time also refuesd gabapentin stating that these medicaitions do not work. Patient educated on medications and continued to refuse. BM today and voiding kyara colored urine. Antibiotics infusing to right EJ. Reported off to night warehouse selector.
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
--- NOTE | 2019-09-22 21:00 | NUR ---
INFORMED PROVIDER, RAY NAYLOR OF PATIENT VOICING WANTING TO GO AMA, RECEIVED RECOMMENDATIONS TO HAVE PATIENT STAY FOR TREATMENT, PROGNOSIS IS POOR IF PATIENT WERE TO GO AMA, ENCOURAGE PATIENT TO TAKE PAIN MEDS AND IF NOT HELPING WITH PAIN TO CALL PROVIDER, HOUSE SUPERVISER, RAUL, INFORMED BY CHARGE NURSEBRET OF PATIENT'S STATEMENT, ALSO PRESENT WHEN THIS NURSE, INFORMED PATIENT OF PROVIDER'S RECOMMENDATIONS, WITH PATIENT STATING SHE WILL STAY UNTIL TOMORROW.
--- NOTE | 2019-09-22 22:01 | NUR ---
INFORMED PROVIDER, RAY NAYLOR, OF PATIENT'S DECISION TO STAY,NO FURTHER ORDERS GIVEN. OBSERVED PATIENT STATING SHE IS "CERTIFIABLE CRAZY" STATING SHE HAS PTSD, DEPRESSION, ANXIETY, MULTIPLE PERSONALITY DISORDER. STATES SHE HAS 5 PERSONALITIES, STATED SHE WAS TALKING TO 1 PERSONALITY "FLEX" AT THIS TIME. OBSERVED PATIENT C/O BEING COLD, HAS KPAD ON LEFT ARM AND SEVERAL BLANKETS COVERING HER BODY CURRENTLY.
--- NOTE | 2019-09-22 23:34 | NUR ---
DENIES NEED TO CHANGE DISPOSABLE BRIEF AT THIS TIME, REPORTS TRYING TO PASS STOOL STATING THAT "IT'S STUCK". DENIES INCONTINENT URINE IN BRIEF. PATIENT CALLS OUT IN CONVERSATION AT TIMES, STATING SHE IS TALKING TO HER MULTIPLE PERSONALITIES. DENIES ANY OTHER NEEDS AT THIS TIME.
[2019-09-23 00:07] VITALS: BP 97/59; PULSE 104; TEMP 98.8
--- NOTE | 2019-09-23 00:38 | NUR ---
REFUSED TO HAVE DISPOSABLE BRIEF CHANGE, STATES SHE IS STILL TRYING TO PASS STOOL, DENIES BRIEF IS WET WITH INCONTINENT URINE. RESTING WITH EYES CLOSED INTERMITTENTLY, BREATHING NONLABORED. IV TO RIGHT EXTERNAL JUGULAR IN PLACE, DRSG DRY, IV ABX INFUSING WITH NO PROBLEMS AT THIS TIME.
[2019-09-23 03:38] VITALS: BP 94/60; PULSE 103; TEMP 98
--- NOTE | 2019-09-23 04:05 | NUR ---
CHECKED BRIEF, DRY OF STOOL OR URINE, PATIENT STATES SHE IS PASSING A LOT OF "GAS". SEE eMAR FOR PAIN MED GIVEN. PATIENT HAS BEEN SLEEPING OFF AND ON THROUGH THE NIGHT, INTERMITTENTLY. OBSERVED IV SITE OUT FROM R EXTERNAL JUGULAR, IV TUBING WRAPPED AROUND PATIENT'S FOREARM/HAND. OBSERVED NO BLEEDING FROM RIGHT NECK AREA, APPLIED LIGHT PRESSURE TO RIGHT NECK FOR ABOUT 2-3 MIN WITH NO BLEEDING OBSERVED FROM RIGHT NECK VENIPUNCTURE SITE OR TO RIGHT NECK.
[2019-09-23 06:37] LABS: BASO % 0.4 % (0.0-2.0); EOS % 0.4 % (0-4.0); GRAN # 6.7 (1.4-6.5); GRAN % 78.3 % (42.2-75.2); MEAN CELL VOLUME 81 fl (80.0-100.0); MEAN CORPUSCULAR HGB CONC 33 g/dl (33.0-37.0); MEAN PLATELET VOLUME 10.8 fl (7.4-10.4); MONO # 0.7 (0.1-0.6); MONO % 8.1 % (1.7-9.3); PLATELET COUNT 166 K/mm3 (130-400); RED BLOOD COUNT 3.62 M/mm3 (4.10-5.30); REDCELL DISTRIBUTION WIDTH-CV 16.1 % (11.5-14.5)
[2019-09-23 06:44] LABS: HEMATOCRIT 29.3 % (37.0-47.0); HEMOGLOBIN 9.6 g/dl (12.5-16.0); MEAN CORPUSCULAR HEMOGLOBIN 27 pg (27.0-31.0)
[2019-09-23 06:49] LABS: ALBUMIN 2.6 gm/dL (3.5-5.0); BILIRUBIN,TOTAL 1.1 mg/dL (0.0-1.0); CALCIUM 7.9 mg/dL (8.4-10.2); CREATININE, serum 1.27 (0.52-1.25); POTASSIUM 4.4 mmol/L (3.4-5.0); TOTAL PROTEIN 7.4 gm/dL (6.4-8.2)
--- NOTE | 2019-09-23 07:36 | NUR ---
PATIENT SLEEPING IN BED DURING CHANGE OF SHIFT REPORT GIVEN TO DAY SHIFT NURSEMOOSE. IV ABX INFUSING WITH NO PROBLEMS.
[2019-09-23 09:55] VITALS: BP 102/69; PULSE 93; TEMP 97.5
--- NOTE | 2019-09-23 10:30 | NUR ---
Patient resting in bed. drowsy. Moans & groans. Rating pain 11/25. [place] per orders. Vancomycin stopped, Critical high Vancocyin level. Patient was incontinent of large BM, reports she does not know when she goes. Incontinece care provided & fresh linens. Left arm swollen & reddened & warm. CMs intact. Int to rfa. Patient eating minimally. HIgh fall risk protocol followed.
[2019-09-23 11:04] VITALS: BP 109/72; PULSE 96; TEMP 97.6
--- NOTE | 2019-09-23 16:19 | NUR ---
Contract Specialist spoke with Jacob at [facility] who advised they are able to accept and could have beds available throughout the week. SW left messages for [facility] and [facility]. NANO spoke with Roge negron [place] and [facility]win negron [place] who both advised they did not receive referral. NANO refaxed. [facility], [facility], and [facility] declined referral. NANO contacted patient's daughter, Liz to provide update. Liz advised she is agreeable with patient returning to [facility] upon discharge. Liz reports patient was talking about leaving AMA but she was glad patient was talked out of this. NANO will continue to follow.
[2019-09-23 17:55] VITALS: BP 130/89; PULSE 69; TEMP 97.6
--- NOTE | 2019-09-23 19:14 | NUR ---
Patient up to the commode this evening. 2 assist with walker. dark concentrated urine. Patient had another large incontinent episode of loose stool. pericare provided. Patient had ate well for dinner, better appetite. I did not give insulin with dinner since she has a low blood sugar at lunch. Ivf & antibioitcs as ordered. Patient Vanc trough was elevated & vanc was stopped & spoke to Erica aguillonsist who was made aware. Patient had not requested pain medication, so no [place] given. [facility]
[2019-09-23 19:24] VITALS: BP 136/85; PULSE 96; TEMP 98.9
[2019-09-23 23:58] LABS: CLOSTRIDIUM DIFF A/B NEG; CLOSTRIDIUM DIFF A/B INTERP No C.diff present
[2019-09-24 00:04] VITALS: BP 134/86; PULSE 109; TEMP 97.9
[2019-09-24 05:29] VITALS: BP 103/72; PULSE 98; TEMP 100.3; TEMP 98.3
--- NOTE | 2019-09-24 06:46 | NUR ---
Pt is currently lying in bed quite. Pt has had times where she cries and screams. Pt was given pain medication this morning. Pt has been doing better this morning. Pt did complain about her arm being in pain and was given pain medication at this time. Pt was changed this morning by the aide. Pt has been incontinent of bowel and urine throughout the night. Pt has her call light within reach and her bed is in lowest position.
[2019-09-24 07:05] LABS: MEAN CELL VOLUME 80 fl (80.0-100.0); MEAN CORPUSCULAR HGB CONC 33 g/dl (33.0-37.0); MEAN PLATELET VOLUME 11.2 fl (7.4-10.4); PLATELET COUNT 158 K/mm3 (130-400); RED BLOOD COUNT 3.44 M/mm3 (4.10-5.30); REDCELL DISTRIBUTION WIDTH-CV 16.2 % (11.5-14.5)
[2019-09-24 07:18] LABS: HEMATOCRIT 27.4 % (37.0-47.0); HEMOGLOBIN 9.1 g/dl (12.5-16.0); MEAN CORPUSCULAR HEMOGLOBIN 26 pg (27.0-31.0)
[2019-09-24 07:25] LABS: ALBUMIN 2.4 gm/dL (3.5-5.0); CALCIUM 7.7 mg/dL (8.4-10.2); CREATININE, serum 1.2 (0.52-1.25); POTASSIUM 4.5 mmol/L (3.4-5.0)
--- NOTE | 2019-09-24 07:36 | NUR ---
Reported off to VARSHA Murhpy. Pt is currently sleeping in bed. Pt has her call light within reach.
[2019-09-24 07:45] VITALS: BP 108/49; PULSE 97; TEMP 94
[2019-09-24 08:17] LABS: BAND 24 % (0-10); HYPOCHROMIA 2+; LYMPHOCYTE 12 % (20.0-51.0); NEUTROPHILS 63 % (42.0-75.2); PLATELET ESTIMATE NORMAL (NORMAL); TARGET CELLS 2+
--- NOTE | 2019-09-24 10:45 | NUR ---
Patient is discharging to [facility] in . Report called to Samuel MADDOX. Patient is aware she is discharging and so is her family. We are currently waiting for ambulance to come get her. All belongings packed up. Let patient know her would like a call from her before she leaves. No other changes at this time. Patient has been resting comfortably this morning. She had one large loose stool this morning. Call light within reach.
[2019-09-24] MEDS ORDERED: ZOSYN 3 GM-0.371 PD1 IV (11:00)
[2019-09-24 11:38] VITALS: BP 108/49; PULSE 97; TEMP 94
[2019-09-24 11:40] VITALS: BP 112/74; PULSE 91; TEMP 97.6
--- NOTE | 2019-09-24 12:40 | NUR ---
Patient is discharging via EMS. Her family is aware she is leaving. Her belongings were packed up and sent with patient. She had her cell phone in hand, foam charger packed up in with belongings. Info packed sent with EMS.
--- NOTE | 2019-09-24 12:41 | NUR ---
Assembler For Puller Over Hand was notified that patient is ready for discharge. NANO spoke with Jacob, at [facility] who has a bed available today. NANO met with patient who states she doesn't want to go all the way to [place]. Patient states she wants to go home. NANO spoke with patient about her need for IV antibiotics and that she cannot get these at home. NANO also advised that the SNFs that referrals were sent to were not able to meet her needs. Patient is tearful and states she doesn't care and that "she can just go home and ". NANO called patient's daughter, Liz to provide update. NANO went to follow up with patient who received a phone call as she was talking to NANO. After the phone call, patient states she talked with her family and now she is agreeable to go to [facility]. NANO collaborated with Jacob and [facility] to set transport time for noon. NANO provided transport time to VARSHA Murphy and [facility]. NANO prepared EMS forms, obtained necessary signatures and placed forms on patient's chart. NANO read IM form aloud to patient who verbalized understanding and provided verbal consent as signature. NANO placed form in chart and provided copy to patient. NANO left a message for patient's daughter, Liz with transport time. NANO then faxed discharge orders to [facility]. NANO notified [facility], [facility] of [facility], and [facility] [place] and thanked them for reviewing referral. Onelia at [facility] states they would not have been able to meet patient's needs. No additional needs at this time.
== END 2019-09-24 12:40 | DRG 871 ==
LOC: COL.ER 21:05 → SURG 22:30 → COL.ER 22:30 → SURG 09-21 12:33
PROVIDERS: Emergency Medicine; Physician Assistant; Student in an Organized Health Care Education/Training Program; ADMIT Hospitalist
DX: A41.9 Sepsis, unspecified organism (principal); E43 Unspecified severe protein-calorie malnutrition; L03.114 Cellulitis of left upper limb; J98.11 Atelectasis; N17.9 Acute kidney failure, unspecified; E87.1 Hypo-osmolality and hyponatremia; Z68.1 Body mass index [BMI] 19.9 or less, adult; N39.0 Urinary tract infection, site not specified; I50.32 Chronic diastolic (congestive) heart failure; E11.649 Type 2 diabetes mellitus with hypoglycemia without coma; E87.6 Hypokalemia; E83.42 Hypomagnesemia; D64.9 Anemia, unspecified; I11.0 Hypertensive heart disease with heart failure; K21.9 Gastro-esophageal reflux disease without esophagitis; M51.26 Other intervertebral disc displacement, lumbar region; F17.210 Nicotine dependence, cigarettes, uncomplicated; M48.061 Spinal stenosis, lumbar region without neurogenic claudication; F31.9 Bipolar disorder, unspecified; Z79.4 Long term (current) use of insulin; Z85.3 Personal history of malignant neoplasm of breast; Z88.1 Allergy status to other antibiotic agents; Z88.6 Allergy status to analgesic agent
CPT/HCPCS: 99222-AI; 99232-AI; 99233-AI; 99239; J1650; J2543; J3010; J3370; J3475; J7030; J7040; J7050; Q9967